=== PATIENT | female | born 1940 | race Caucasian/White ===

== ENCOUNTER 2024-11-29 19:40 | Inpatient (IN) | payer OTHER, SELFPAY ==
[2024-11-29] VITALS (53 sets, daily range): BP systolic 135–206; BP diastolic 58–108; PULSE 80
[2024-11-29 14:56] LABS: ALT (SGPT) 21 U/L (0-35); AST (SGOT) 19 U/L (14-36); Albumin 3.9 g/dl (3.5-5.0); Alkaline Phosphatase 95 U/L (38-126); Blood Urea Nitrogen 33 mg/dl (7-17); Calcium 9.6 mg/dl (8.4-10.2); Carbon Dioxide 25 mmol/L (22-30); Chloride 105 mmol/L (98-107); Glucose 126 mg/dl (70-99); Potassium 4.3 mmol/L (3.5-5.1); Sodium 142 mmol/L (135-145); Total Bilirubin 1.1 mg/dl (0.2-1.3); Total Protein 7.1 g/dl (6.3-8.2); eGFR 27.78
[2024-11-29 14:59] LABS: % Basophils 0.8 % (0-2); % Eosinophils 0.8 % (0-6); % Immature Granulocytes 0.3 % (0-0.5); % Lymphocytes 9.3 % (20.5-51.1); % Monocytes 9.3 % (1.7-9.3); % Neutrophils 79.5 % (42.2-75.2); Absolute Lymphocytes 0.4 10^3/uL (1.2-3.4); Absolute Monocytes 0.4 10^3/uL (0.1-0.6); Hematocrit 35.7 % (37.0-47.0); Hemoglobin 11.3 g/dL (12.0-16.0); Mean Corp Hgb Conc. 31.7 g/dL (33.0-37.0); Mean Corpuscular Hgb 25.2 pg (27.0-31.0); Mean Corpuscular Volume 79.5 fL (81.0-99.0); Nucleated Red Blood Cells % 0 %; Platelet Count 129 10^3/uL (130-400); Red Blood Cell Count 4.49 10^6/uL (4.20-5.40); Red Cell Dist. Width 21.2 % (11.5-14.5); White Blood Cell Count 3.8 10^3/uL (4.8-10.8)
[2024-11-29 15:08] LABS: NT-proBNP > 27000 pg/ml
--- NOTE | 2024-11-29 15:53 | ED.GENMED ---
History of Present Illness
<Kaitlin Duron PA-C - Last Filed: 11/30/24 01:12>
General
Chief Complaint: Swelling
Source: patient
Exam Limitations: dementia
Time Seen by Provider: 11/29/24 15:09
Nursing documentation reviewed up to this point in time: agreed with
History of Present Illness
History of Present Illness:
Patient is an 84-year-old female with history CAD, hypertension, hyperlipidemia, CHF presenting to the emergency department from [place] via EMS for evaluation of bilateral lower leg swelling. Patient unable to contribute much to history due to
dementia.
Patient has no current complaints right now including headache, chest pain, shortness of breath, abdominal pain, or pain in lower legs.
According to patient's paperwork does she does have a history of CHF. She takes torsemide 20 mg daily. Patient has a pacemaker.
Past History
<Kaitlin Duron PA-C - Last Filed: 11/30/24 01:12>
Past History
ED Past Medical History: HTN
Review of Systems
<Kaitlin Duron PA-C - Last Filed: 11/30/24 01:12>
Review of Systems
Allergies reviewed?: Yes
All Other Systems: ROS reviewed and negative except as documented in HPI and ROS
Phy Exam
<Kaitlin Duron PA-C - Last Filed: 11/30/24 01:12>
Physical Exam
Physical Exam:
Vitals: Hypoxic with O2 88 on RA. Hypertensive, otherwise stable vital signs. Afebrile
General: Patient is frail appearing.
Skin: Warm and dry, no rashes or lesions
Head: Normocephalic, atraumatic
Eyes: Sclera nonicteric. EOMs intact. No nystagmus.
Throat: Protecting airway
Neck: Normal ROM, no cervical spine tenderness, no meningismus. No JVD
Cardiac: Regular rate and rhythm, no murmurs.
Pulm: Hypoxic on room air to 88%. Placed on 3 L nasal cannula. Scattered fine crackles
Abdomen: Abdomen soft. No abdominal tenderness.
Extremities: 2+ pitting edema bilateral lower extremities. No erythema or warmth. Palpable DP pulses bilaterally
Neuro: AAOx [address], not time. No focal deficit
Psychiatric: Normal affect.
Scores
<Kaitlin Duron PA-C - Last Filed: 11/30/24 01:12>
Heart Failure Risk
Heart Failure Risk Score: Yes
History of Stroke or TIA: No
History of intubation for respiratory distress: No
Heart rate on ED arrival >/= 110: No
SaO2 <90% on arrival on room air: Yes
HR >/=110 during 3min walk test (or too ill to perform test): No
ECG has acute ischemic changes: No
Urea >/=12mmol/L (BUN 33.6mg/dL): Yes
Serum CO2>/=35mmol/L: No
Troponin I or T elevated to AL Level (0.4mg/dL): No
NT-proBNP >/=5,000ng/L (5,000pg/ml): Yes
HF Risk Score: 3
Admission Status: HIGH RISK 15.9% Consider SNF treatment or admission to hospital
Course
<Kaitlin Duron PA-C - Last Filed: 11/30/24 01:12>
Orders/Labs/Results
Orders:
Orders
11/29/24 14:04
Electrocardiogram (*1) Urgent
Reason for Study: Shortness of Breath
11/29/24 14:19
CMP [Comprehensive Metabolic Panel] Urgent
Complete Blood Count/With Diff Urgent
NT-proBNP Urgent
Troponin I Urgent
11/29/24 15:24
Interrogate Pacemaker- Treatment ONCE
CR Chest - 2 Views Urgent
Comment:
Reason For Exam: shortness of breath, lower extremity edema
11/29/24 16:40
Furosemide [Lasix] 40 mg IV NOW STA
11/29/24 17:29
Troponin I Urgent
11/29/24 18:22
CT Head W/o Iv Contrast Urgent
Comment:
Reason For Exam: confusion, high blood pressure, hx ICH
11/29/24 18:24
Sorbitol Solution [Sorbitol 70% Solution] 30 ml PO DAILYPRN PRN
methocarbamol 500 mg PO Q8HPRN PRN
11/29/24 18:27
HydrALAZINE [Apresoline] 5 mg IV NOW STA
HydrALAZINE [Apresoline] 5 mg IV Q4HPRN PRN
11/29/24 18:30
Nicardipine 40 mg/200 ml [Cardene] 40 mg in 200 ml IV PER PROTOCOL
Initial dose in mg/hr, then titrate:: 5
Titrate to keep:: BP < 180/105 mmHg
Titrate by mg/hr:: 2.5 mg/hr
Frequency of titrations (minutes):: 5-15 minutes
Maximum dose in mg/hr:: 15
Begin to taper infusion when:: Remained at goal for 2hrs
Taper by mg/hr:: 2.5 mg/hr
Frequency of taper (minutes) if patient maintains goal:: every 15-30 minutes
Taper to off?: Yes
If infusion off & no longer maintaining goal:: Contact Provider
11/29/24 18:41
Admit/Transfer Patient As Directed
Co-Sign Provider:
Level of Care: Inpatient admission
Assign to:: ICU
Physician / Group: Misael Cast
Diagnosis: Hypertensive Emergency/Urgency Heart Failure ALYSON
Reason for Hospitalization: Hypertensive Emergency/Urgency Heart Failure [facility]
Expected length of stay greater than two midnights?: Yes
ELOS- Estimated Length of Stay in days: 2
I certify the patient meets the requirements for IP care: Yes
PRN Pain Medication Management As Directed
May give lesser potent ordered pain med per pt: Yes
preference::
Protocol:: Medication orders for pain may be administered in a
manner that supports deferring to patient preference
when the pt is:
- Requesting an ordered lesser potent pain medication.
Least to most potent pain medications are defined
as: acetaminophen < NSAID < tramadol < opioids
(morphine, oxycodone, hydromorphone).
- Requesting a lesser dose of the same medication IF
ORDERED.
- Requesting a less intrusive route of administration
if both routes are prescribed by the provider (PO <
IV).
11/29/24 18:54
Supervisor Asphalt Paving Consult Urgent
Consulting Provider: Dev Walden
Was physician already notified: Yes
Reason for consult: Hypertensive Emergency/Urgency Heart Failure ALYSON
11/29/24 18:59
CARDIOLOGY CONSULT Routine
Consulting Provider: Chidi Latham
Was physician already notified: Yes
Reason for consult: Hypertensive Emergency/Urgency Heart Failure ALYSON
11/29/24 19:01
NEPHROLOGY CONSULT Routine
Consulting Provider: Seth Chen V.
Was physician already notified: Yes
Reason for consult: Hypertensive Emergency/Urgency Heart Failure ALYSON
11/29/24 19:15
Precautions As Directed
Type of Precautions: Other
Comment: fall precautions
11/29/24 19:21
Acetaminophen [Tylenol] 650 mg PO Q6HPRN PRN
11/29/24 19:26
Lidocaine [Lidocaine 4% Patch] 1 patch TOPICAL DAILYPRN PRN
Apply Lidocaine patch(s) to:: back pain
11/29/24 19:27
Remove Patch [Remove Lidocaine Patch] 1 patch REMOVE DAILY@2000 PRN
Medical Records Request [Obtain Records] As Directed
Dates of Information to be Released: [place] [facility]
Type of Information Requested: Entire Record
11/29/24 19:29
Bisacodyl [Dulcolax] 10 mg RECTAL DAILYPRN PRN
11/29/24 19:37
Code Status As Directed
Resuscitation Status: Do not resuscitate
Reached after discussion with pt or family/Healthcare POA: Yes
DNR Bracelet Application ONCE
11/29/24 20:00
Carvedilol [Coreg] 12.5 mg PO BID
Flush (0.9% Sodium Chloride) [Flush (Nss)] See Dose Instructions IV PER PROTOCOL
HydrALAZINE [Apresoline] 25 mg PO BID
11/29/24 22:00
Atorvastatin [Lipitor] 40 mg PO HS
11/30/24 00:21
Bisacodyl [Dulcolax] 10 mg RECTAL [id number] PRN
Docusate W/Senna [Senokot-S] 1 tablet PO BIDPRN PRN
Heparin 5,000 units SC Q8
Nitroglycerin Sublingual [Nitrostat (Sublingual)] 0.4 mg SL [id number] PRN
Polyethylene Glycol Powder [Miralax] 17 grams PO DAILYPRN PRN
11/30/24 00:21
Admit Patient As Directed
Co-Sign Provider:
Level of Care: Inpatient admission
Assign to:: ICU
Physician / Group: Misael Cast
Diagnosis: Hypertensive Emergency/Urgency Heart Failure [facility]ON
Reason for Hospitalization: Hypertensive Emergency/Urgency Heart Failure [facility]
Expected length of stay greater than two midnights?: Yes
ELOS- Estimated Length of Stay in days: 2
I certify the patient meets the requirements for IP care: Yes
Echo 2D MMode Color/Doppler Routine
Reason for Study: heart failure
Troponin I Routine
Activity As Directed
Activity Level: With Assistance
Bladder Scan As Directed
Follow Bladder Retention/Intermittent Cath Algorithm?: Yes
Frequency: Per Retention Algorithm
Comment: as per intermittent urinary catheter algorithm
Bladder Scan As Directed
Follow Bladder Retention/Intermittent Cath Algorithm?: Yes
PRN if no void in __ hours: 6
Frequency: Per Retention Algorithm
If Bladder Scan Result >: 400
then:: Straight cath
ECG as needed As Directed
ECG as needed for:: Chest Pain
Other reason
Other reason for ECG as needed:: new suspicion of ACS
Comment: At onset of Chest Pain and then Q__H x 2. draw Troponin with each ECG
Additional Instructions:: at onset of chest pain or new suspicion of ACS:
-- ECG and Troponin urgent now
-- then ECG and Troponin with each ECG every 3 hours x total of 3,
including ED or other inpatient ECG/troponins.
Intake/ Output As Directed
Frequency: Per unit guidelines
Neurological Checks As Directed
Frequency: Per unit guidelines
Notify MD As Directed
Notify physician if: if patient has chest pain or new suspicion of ACS
Straight Cath As Directed
Frequency: Per Retention Algorithm
Additional Instructions: as per intermittent urinary catheter algorithm
Straight Cath As Directed
Frequency: Per Retention Algorithm
Additional Instructions: straight cath as needed per acute urinary retention algorithm for 24 hrs
Additional Instructions: for bladder scan greater than 400 mL
Vital Signs As Directed
Frequency: Per unit guidelines
Weight As Directed
Frequency: Daily
Pulse Ox/spot Check [RESP] Urgent
Quantity: 1
Special Instructions: Pulse Oximetry on admission
Ot Eval And Treat Routine
Pt Eval And Treat Routine
Activity Level: With Assistance
Speech Therapy Eval & Treat Routine
DX Deep Vein Thrombosis Video Routine
11/30/24 Breakfast
Sodium, 2 Gram
At Your Request: Non-Participating
Does patient need a safe tray?: No
Fluid Restriction: 1500 mL/day (50 oz)
Low Sodium: Cholesterol Lowering
Basic Metabolic Panel IN AM
Complete Blood Count/With Diff IN AM
Magnesium IN AM
Phosphorus IN AM
Levothyroxine [Synthroid] 50 mcg PO DAILY@0600
Ot Eval And Treat IN AM
Pt Eval And Treat IN AM
Activity Level: With Assistance
Speech Therapy Eval & Treat IN AM
11/30/24 08:00
Furosemide [Lasix] 40 mg IV BID AT 0800,1600
12/01/24 06:00
Basic Metabolic Panel IN AM
Complete Blood Count/With Diff IN AM
Magnesium IN AM
Phosphorus IN AM
12/02/24 06:00
Basic Metabolic Panel IN AM
Complete Blood Count/With Diff IN AM
Magnesium IN AM
Phosphorus IN AM
12/03/24 06:00
Basic Metabolic Panel IN AM
Complete Blood Count/With Diff IN AM
Magnesium IN AM
Phosphorus IN AM
12/04/24 06:00
Basic Metabolic Panel IN AM
Complete Blood Count/With Diff IN AM
Magnesium IN AM
Phosphorus IN AM
12/05/24 06:00
Basic Metabolic Panel IN AM
Complete Blood Count/With Diff IN AM
Magnesium IN AM
Phosphorus IN AM
12/06/24 06:00
Basic Metabolic Panel IN AM
Complete Blood Count/With Diff IN AM
Magnesium IN AM
Phosphorus IN AM
Abnormal Lab Results
11/29/24 11/29/24
14:19 17:29
WBC 3.8 L 10^3/uL
(4.8-10.8)
Hgb 11.3 L g/dL
(12.0-16.0)
Hct 35.7 L %
(37.0-47.0)
MCV 79.5 L fL
(81.0-99.0)
MCH 25.2 L pg
(27.0-31.0)
MCHC 31.7 L g/dL
(33.0-37.0)
RDW 21.2 H %
(11.5-14.5)
Plt Count 129 L 10^3/uL
(130-400)
Absolute Lymphs (auto) 0.4 L 10^3/uL
(1.2-3.4)
Neutrophils % 79.5 H %
(42.2-75.2)
Lymphocytes % 9.3 L %
(20.5-51.1)
BUN 33 H mg/dl
(7-17)
Creatinine 1.8 H mg/dL
(0.6-1.0)
Glucose 126 H mg/dl
(70-99)
Troponin I 0.050 H* ng/ml 0.044 H* ng/ml
11/29/24 14:19
11/29/24 14:19
Vital Signs
Initial and Last Documented VS:
Initial Vital Signs
Temp Pulse Resp Pulse Ox
97.6 F 85 18 95
11/29/24 13:55 11/29/24 13:55 11/29/24 13:55 11/29/24 13:55
Last Documented Vital Signs
Temp Pulse Resp BP Pulse Ox
97.9 F 80 26 151/62 93
11/30/24 00:03 11/30/24 00:45 11/30/24 00:45 11/30/24 00:30 11/30/24 00:51
<Ramírez Esparza MD - Last Filed: 11/29/24 20:26>
Orders/Labs/Results
Orders:
Orders
11/29/24 14:04
Electrocardiogram (*1) Urgent
Reason for Study: Shortness of Breath
11/29/24 14:19
CMP [Comprehensive Metabolic Panel] Urgent
Complete Blood Count/With Diff Urgent
NT-proBNP Urgent
Troponin I Urgent
11/29/24 15:24
Interrogate Pacemaker- Treatment ONCE
CR Chest - 2 Views Urgent
Comment:
Reason For Exam: shortness of breath, lower extremity edema
11/29/24 16:40
Furosemide [Lasix] 40 mg IV NOW STA
11/29/24 17:29
Troponin I Urgent
11/29/24 18:22
CT Head W/o Iv Contrast Urgent
Comment:
Reason For Exam: confusion, high blood pressure, hx ICH
11/29/24 18:24
Sorbitol Solution [Sorbitol 70% Solution] 30 ml PO DAILYPRN PRN
methocarbamol 500 mg PO Q8HPRN PRN
11/29/24 18:27
HydrALAZINE [Apresoline] 5 mg IV NOW STA
HydrALAZINE [Apresoline] 5 mg IV Q4HPRN PRN
11/29/24 18:30
Nicardipine 40 mg/200 ml [Cardene] 40 mg in 200 ml IV PER PROTOCOL
Initial dose in mg/hr, then titrate:: 5
Titrate to keep:: BP < 180/105 mmHg
Titrate by mg/hr:: 2.5 mg/hr
Frequency of titrations (minutes):: 5-15 minutes
Maximum dose in mg/hr:: 15
Begin to taper infusion when:: Remained at goal for 2hrs
Taper by mg/hr:: 2.5 mg/hr
Frequency of taper (minutes) if patient maintains goal:: every 15-30 minutes
Taper to off?: Yes
If infusion off & no longer maintaining goal:: Contact Provider
11/29/24 18:41
Admit/Transfer Patient As Directed
Co-Sign Provider:
Level of Care: Inpatient admission
Assign to:: ICU
Physician / Group: Misael Cast
Diagnosis: Hypertensive Emergency/Urgency Heart Failure AL[facility]ON
Reason for Hospitalization: Hypertensive Emergency/Urgency Heart Failure [facility]
Expected length of stay greater than two midnights?: Yes
ELOS- Estimated Length of Stay in days: 2
I certify the patient meets the requirements for IP care: Yes
PRN Pain Medication Management As Directed
May give lesser potent ordered pain med per pt: Yes
preference::
Protocol:: Medication orders for pain may be administered in a
manner that supports deferring to patient preference
when the pt is:
- Requesting an ordered lesser potent pain medication.
Least to most potent pain medications are defined
as: acetaminophen < NSAID < tramadol < opioids
(morphine, oxycodone, hydromorphone).
- Requesting a lesser dose of the same medication IF
ORDERED.
- Requesting a less intrusive route of administration
if both routes are prescribed by the provider (PO <
IV).
11/29/24 18:54
Supervisor Asphalt Paving Consult Urgent
Consulting Provider: Dev Walden
Was physician already notified: Yes
Reason for consult: Hypertensive Emergency/Urgency Heart Failure ALYSON
11/29/24 18:59
CARDIOLOGY CONSULT Routine
Consulting Provider: Chidi Latham
Was physician already notified: Yes
Reason for consult: Hypertensive Emergency/Urgency Heart Failure ALYSON
11/29/24 19:01
NEPHROLOGY CONSULT Routine
Consulting Provider: Seth Chen V.
Was physician already notified: Yes
Reason for consult: Hypertensive Emergency/Urgency Heart Failure ALYSON
11/29/24 19:15
Precautions As Directed
Type of Precautions: Other
Comment: fall precautions
11/29/24 19:21
Acetaminophen [Tylenol] 650 mg PO Q6HPRN PRN
11/29/24 19:26
Lidocaine [Lidocaine 4% Patch] 1 patch TOPICAL DAILYPRN PRN
Apply Lidocaine patch(s) to:: back pain
11/29/24 19:27
Remove Patch [Remove Lidocaine Patch] 1 patch REMOVE DAILY@2000 PRN
Medical Records Request [Obtain Records] As Directed
Dates of Information to be Released: [place] [facility]
Type of Information Requested: Entire Record
11/29/24 19:29
Bisacodyl [Dulcolax] 10 mg RECTAL DAILYPRN PRN
11/29/24 19:37
Code Status As Directed
Resuscitation Status: Do not resuscitate
Reached after discussion with pt or family/Healthcare POA: Yes
DNR Bracelet Application ONCE
11/29/24 20:00
Carvedilol [Coreg] 12.5 mg PO BID
Flush (0.9% Sodium Chloride) [Flush (Nss)] See Dose Instructions IV PER PROTOCOL
HydrALAZINE [Apresoline] 25 mg PO BID
11/29/24 22:00
Atorvastatin [Lipitor] 40 mg PO HS
11/30/24 00:21
Bisacodyl [Dulcolax] 10 mg RECTAL [id number] PRN
Docusate W/Senna [Senokot-S] 1 tablet PO BIDPRN PRN
Heparin 5,000 units SC Q8
Nitroglycerin Sublingual [Nitrostat (Sublingual)] 0.4 mg SL [id number] PRN
Polyethylene Glycol Powder [Miralax] 17 grams PO DAILYPRN PRN
11/30/24 00:21
Admit Patient As Directed
Co-Sign Provider:
Level of Care: Inpatient admission
Assign to:: ICU
Physician / Group: Misael Cast
Diagnosis: Hypertensive Emergency/Urgency Heart Failure ALYSON
Reason for Hospitalization: Hypertensive Emergency/Urgency Heart Failure [facility]
Expected length of stay greater than two midnights?: Yes
ELOS- Estimated Length of Stay in days: 2
I certify the patient meets the requirements for IP care: Yes
Echo 2D MMode Color/Doppler Routine
Reason for Study: heart failure
Troponin I Routine
Activity As Directed
Activity Level: With Assistance
Bladder Scan As Directed
Follow Bladder Retention/Intermittent Cath Algorithm?: Yes
Frequency: Per Retention Algorithm
Comment: as per intermittent urinary catheter algorithm
Bladder Scan As Directed
Follow Bladder Retention/Intermittent Cath Algorithm?: Yes
PRN if no void in __ hours: 6
Frequency: Per Retention Algorithm
If Bladder Scan Result >: 400
then:: Straight cath
ECG as needed As Directed
ECG as needed for:: Chest Pain
Other reason
Other reason for ECG as needed:: new suspicion of ACS
Comment: At onset of Chest Pain and then Q__H x 2. draw Troponin with each ECG
Additional Instructions:: at onset of chest pain or new suspicion of ACS:
-- ECG and Troponin urgent now
-- then ECG and Troponin with each ECG every 3 hours x total of 3,
including ED or other inpatient ECG/troponins.
Intake/ Output As Directed
Frequency: Per unit guidelines
Neurological Checks As Directed
Frequency: Per unit guidelines
Notify MD As Directed
Notify physician if: if patient has chest pain or new suspicion of ACS
Straight Cath As Directed
Frequency: Per Retention Algorithm
Additional Instructions: as per intermittent urinary catheter algorithm
Straight Cath As Directed
Frequency: Per Retention Algorithm
Additional Instructions: straight cath as needed per acute urinary retention algorithm for 24 hrs
Additional Instructions: for bladder scan greater than 400 mL
Vital Signs As Directed
Frequency: Per unit guidelines
Weight As Directed
Frequency: Daily
Pulse Ox/spot Check [RESP] Urgent
Quantity: 1
Special Instructions: Pulse Oximetry on admission
Ot Eval And Treat Routine
Pt Eval And Treat Routine
Activity Level: With Assistance
Speech Therapy Eval & Treat Routine
DX Deep Vein Thrombosis Video Routine
11/30/24 Breakfast
Sodium, 2 Gram
At Your Request: Non-Participating
Does patient need a safe tray?: No
Fluid Restriction: 1500 mL/day (50 oz)
Low Sodium: Cholesterol Lowering
Basic Metabolic Panel IN AM
Complete Blood Count/With Diff IN AM
Magnesium IN AM
Phosphorus IN AM
Levothyroxine [Synthroid] 50 mcg PO DAILY@0600
Ot Eval And Treat IN AM
Pt Eval And Treat IN AM
Activity Level: With Assistance
Speech Therapy Eval & Treat IN AM
11/30/24 08:00
Furosemide [Lasix] 40 mg IV BID AT 0800,1600
12/01/24 06:00
Basic Metabolic Panel IN AM
Complete Blood Count/With Diff IN AM
Magnesium IN AM
Phosphorus IN AM
12/02/24 06:00
Basic Metabolic Panel IN AM
Complete Blood Count/With Diff IN AM
Magnesium IN AM
Phosphorus IN AM
12/03/24 06:00
Basic Metabolic Panel IN AM
Complete Blood Count/With Diff IN AM
Magnesium IN AM
Phosphorus IN AM
12/04/24 06:00
Basic Metabolic Panel IN AM
Complete Blood Count/With Diff IN AM
Magnesium IN AM
Phosphorus IN AM
12/05/24 06:00
Basic Metabolic Panel IN AM
Complete Blood Count/With Diff IN AM
Magnesium IN AM
Phosphorus IN AM
12/06/24 06:00
Basic Metabolic Panel IN AM
Complete Blood Count/With Diff IN AM
Magnesium IN AM
Phosphorus IN AM
Abnormal Lab Results
11/29/24 11/29/24
14:19 17:29
WBC 3.8 L 10^3/uL
(4.8-10.8)
Hgb 11.3 L g/dL
(12.0-16.0)
Hct 35.7 L %
(37.0-47.0)
MCV 79.5 L fL
(81.0-99.0)
MCH 25.2 L pg
(27.0-31.0)
MCHC 31.7 L g/dL
(33.0-37.0)
RDW 21.2 H %
(11.5-14.5)
Plt Count 129 L 10^3/uL
(130-400)
Absolute Lymphs (auto) 0.4 L 10^3/uL
(1.2-3.4)
Neutrophils % 79.5 H %
(42.2-75.2)
Lymphocytes % 9.3 L %
(20.5-51.1)
BUN 33 H mg/dl
(7-17)
Creatinine 1.8 H mg/dL
(0.6-1.0)
Glucose 126 H mg/dl
(70-99)
Troponin I 0.050 H* ng/ml 0.044 H* ng/ml
11/29/24 14:19
11/29/24 14:19
Vital Signs
Initial and Last Documented VS:
Initial Vital Signs
Temp Pulse Resp Pulse Ox
97.6 F 85 18 95
11/29/24 13:55 11/29/24 13:55 11/29/24 13:55 11/29/24 13:55
Last Documented Vital Signs
Temp Pulse Resp BP Pulse Ox
97.9 F 80 26 151/62 93
11/30/24 00:03 11/30/24 00:45 11/30/24 00:45 11/30/24 00:30 11/30/24 00:51
<Kaitlin Duron PA-C - Last Filed: 11/30/24 01:12>
MDM/Problems Addressed
Differential Diagnosis Includes:
Not limited to: Acute CHF exacerbation, lymphedema, bronchitis, pneumonia, viral illness, ACS, doubt PE, etc.
MDM/Problems Addressed:
84-year-old female with history as documented presenting with bilateral lower extremity edema. Patient found to be hypoxic on arrival to emergency, 88% on room air. Patient placed on 3 L nasal cannula. Patient with history dementia, unable to
extremity history although denies any current complaints. Patient is hypertensive and hypoxic on arrival, otherwise stable vital signs. She is afebrile. On exam�patient in no apparent distress. Heart regular rate and rhythm. Lungs with
scattered rales. She does not appear to be in any respiratory distress. Abdomen soft nontender. Patient does have 2+ pitting edema bilateral lower extremities. Palpable pulses. No erythema or warmth to suggest infectious process. Do not
suspect DVT. Basic labs initiated in triage significant for mild leukopenia. Mild renal insufficiency slightly worse [place] >[address]. Troponin elevated to 0.050 which I suspect to be secondary to demand ischemia. Do not suspect
ACS although will trend. High suspicion for acute CHF exacerbation. Will obtain chest x-ray. Patient will likely require admission for IV diuresis.
Update: Chest x-ray shows pulmonary edema with bilateral pleural effusions. Patient given 40 IV Lasix in emergency department. Patient accepted to hospital service in stable condition.
Chronic conditions affecting care:
Atrial fibrillation, CAD, hypertension, CHF
Acute Exacerbation and/or Progression of Chronic Illness:
Acute CHF exacerbation
<Kaitlin Duron PA-C - Last Filed: 11/30/24 01:12>
*Radiology
Radiology exam reviewed: preliminary read by ED provider (Pulmonary edema) and radiology read reviewed
*Pulse Oximetry
Patient hypoxic: yes (Hypoxic to 88 on room air-placed on 3 L nasal)
*EKG
Interpreted by ED Provider?: Yes
EKG Intrepretation Date: 11/29/24
Interpretation: abnormal
Comparison EKG: no comparison EKG present
Heart Rate: 81
Rate: normal
Rhythm: ventricular paced
*Debt Collection Specialist Interpretation
Rate: normal
Interpretation: abnormal
Heart Rate: 80
Rhythm: ventricular paced
*Critical Care Note
Total Time (30-74mins, 75-104mins- exclusive of procedures): Not Applicable
<Kaitlin Duron PA-C - Last Filed: 11/30/24 01:12>
Patient Management
Discussion with other providers: Hospitalist
Escalation/DeEscalation of care consider admission/obs:
Admit for IV diuresis, supplemental oxygen
ED Attending Note
<Kaitlin Duron PA-C - Last Filed: 11/30/24 01:12>
-
Portions of this chart may have been created with voice recognition software.� Occasional wrong word or��sound alike� substitutions may have occurred due to the inherent limitations of voice recognition software.
<Ramírez Esparza MD - Last Filed: 11/29/24 20:26>
ED Attending Note
Patient seen and examined by attending physician: Yes
I performed the substantive portion of visit, reviewed & personally made and approve the management plan that is documented in note by myself or KYA.: Yes
ED Attending Note:
I have seen and evaluated the patient with a [id number] encounter. I have spoken to the [PA] and involved in the medical history, the physical exam, medical decision making.
Evaluation and management service: agree unless noted differently below.
Results interpretation: agree unless noted differently below.
84-year-old woman with history of CAD, CHF, CKD presenting to the emergency department with bilateral lower extremity swelling. Patient with dementia and unable to provide any additional history. Vitals are notable for hypertension as well as
hypoxia. She does have Rales bilaterally though she appears extremely comfortable.. Bilateral lower extremity swelling. Likely CHF exacerbation. Will initiate Lasix. Patient will need admission for diuresis.
Discharge Plan
Departure
Patient Disposition: Admit
Date of Disposition: 11/29/24
Time of Disposition: 16:38
Presentation/result/management discussed w/ accepting MD/DO: Hospitalist
Patient with high blood pressure during this ER visit?: Yes
Condition: Good
Discharge Problem:
Acute exacerbation of CHF (congestive heart failure), Hypoxia, Elevated troponin
Interventions
Interventions:
*Risk Screen - Suicide Last Done: 11/29/24 13:55
*General Assessment Last Done: 11/29/24 13:55
*Neglect/Abuse Screening Last Done: 11/29/24 13:55
ED- Fall Risk Assessment Last Done: 11/29/24 13:55
*ED COVID-19 Vaccine History Last Done: 11/29/24 13:55
*Nursing Disposition Last Done: 11/29/24 23:40
ED- Cardiac Assessment Last Done: 11/29/24 14:17
ED- Pulmonary Assessment Last Done: 11/29/24 14:17
ED-Skin Assessment Last Done: 11/29/24 14:25
Discharge Date and Time
Discharge Date/Time: 11/29/24 23:40
[2024-11-29] MEDS: LASIX 40 MG IV (17:14)
--- NOTE | 2024-11-29 17:43 | HPS.HSE ---
Addendum entered and electronically signed by Misael Cast MD 11/29/24 19:30:
Of note, patient was here 2021 for Hemorrhagic stroke transferred to [facility].
All of history obtained from records and son Dorian YUN's report at bedside.
Original Note:
Family Physician
-
Family Physician: Romy Rodriguez
Chief Complaint
-
Shortness of breath
History of Present Illness
84F CAD ischemic Cardiomyopathy CHF ppm Hypothyroidism PAD CKD3 recent traumatic brain injury Cognitive Impairment/Dementia following Intracranial Hemorrhage from fall treated at [facility] non-operatively a month ago presents from [facility]
living d/t concerns progressive SOB hypoxia requiring 4L lower ext swelling roughly 1 day duration. AOx3 though confused, does not know why she is in hospital, appears baseline as per son POA at bedside. High pressures noted >190/>100. Patient
denied pain headache palpitations. Pupil equal size not enlarged. Cr 1.8 possibly ALYSON vs baseline CKD IV. CR chest noted moderate cardiomegaly w/ pulm edema and b/l pleural effusions
Medical History
Past Medical History
Past Medical History: Reports Other (as above)
Past Surgical History: Reports Other (as above)
Social History
Tobacco: Non-smoker
Alcohol: None
Drug: None
Personal:
Living: Assisted Living ([place])
Employment: Not Employed
Family History
Family History: Not pertinent (reviewed)
Allergies / Home Medications
Allergies reflects when Allergies were last updated in [facility].
Home Medications with original date entered in [facility]
Allergy/Medication List:
Allergies
Allergy/AdvReac Type Severity Reaction Status Date / Time
amoxicillin Allergy Vomiting Verified 11/19/22 22:42
Beta-Blockers Allergy list Verified 11/19/22 22:42
(Beta-Adrenergic Bloc states
worsens
Raynauds
codeine Allergy Nausea / Verified 11/19/22 22:42
Vomiting
Home Medications
levothyroxine 25 mcg tablet (Synthroid) 50 mcg PO DAILY@0600 11/19/22
acetaminophen 325 mg tablet (Tylenol) 650 mg PO Q6HPRN PRN mild pain 11/29/24
atorvastatin 40 mg tablet (Lipitor) 40 mg PO HS 11/29/24
bisacodyl 10 mg rectal suppository (Dulcolax (bisacodyl)) 10 mg [place] DAILYPRN PRN constipation 11/29/24
carvedilol 12.5 mg tablet (Coreg) 12.5 mg PO BID 11/29/24
hydralazine 25 mg tablet 25 mg PO BID 11/29/24
lidocaine 4 % topical patch 1 patch topical DAILYPRN PRN back pain 11/29/24
methocarbamol 500 mg tablet 500 mg PO Q8HPRN PRN muscle spams 11/29/24
sorbitol 70 % solution 30 ml PO DAILYPRN PRN constipation 11/29/24
torsemide 20 mg tablet 20 mg PO DAILY 11/29/24
Review of Systems
-
A 12 point ROS was completed and negative except as noted: Yes
Constitutional: Reports Other (as below)
Physical Exam
Vital Signs
Vital Signs
Temp Pulse Resp BP Pulse Ox
97.6 F 80 18 183/101 98
11/29/24 13:55 11/29/24 17:30 11/29/24 13:55 11/29/24 17:14 11/29/24 17:30
Physical Exam
General: Other (as below)
Laboratory Results
-
11/29/24 14:19
11/29/24 14:19
Laboratory Results
Total Bilirubin 1.1 mg/dl (0.2-1.3) 11/29/24 14:19
AST 19 U/L (14-36) 11/29/24 14:19
ALT 21 U/L (0-35) 11/29/24 14:19
Alkaline Phosphatase 95 U/L (38-126) 11/29/24 14:19
Troponin I 0.050 ng/ml H* 11/29/24 14:19
Impression/Plan
-
ROS
General: Denies fever chills night sweats unexpected weight loss
Neuro: Denies seizure shaking loss of consciousness dizziness vertigo
Psych: denies depression hallucinations confusion manic episodes
Endocrine: Denies polyuria polydipsia polyphagia heat/cold intolerance
HEENT: Denies blindness visual disturbances epistaxis
Pulmonary: denies coughing hemoptysis sneezing sob dyspnea on exertion
Cardiovascular: denies chest pain palpitations leg swelling
Hematology: denies signs symptoms of anemia easy bruising/bleeding
Gastrointestinal: denies nausea vomiting diarrhea constipation hematemesis hematochezia melena
Genito-Urinary: denies retention incontinence dysuria
Musculoskeletal: denies joint pain weakness
Dermatology: denies rash laceration bruising
Physical Exam
General: No pallor, cyanosis, or jaundice.
HEENT: Throat clear. Normocephalic atraumatic. Pupils equal not enlarged
NECK: Supple. No JVD Carotid Bruits
RESPIRATORY: Lungs clear to auscultation. No crackles wheezes stridor
CVS: S1, S2 normal. RRR. No murmur, rub or gallop. palpable pacemaker
ABDOMEN: Soft, non-tender. No distension. BS+/normal.
EXTREMITIES: No peripheral cyanosis. Lower ext edema +2 b/l. strength 4/5 lower ext's able to lift off bed
[employer]: AOx3 though some confusion memory issues noted
IMPRESSION:
84F CAD ischemic Cardiomyopathy CHF ppm Hypothyroidism PAD CKD3 recent traumatic brain injury Cognitive Impairment/Dementia following Intracranial Hemorrhage from fall treated at [facility] non-operatively a month ago presents from [facility]
living d/t concerns progressive SOB hypoxia requiring 4L lower ext swelling roughly 1 day duration. AOx3 though confused, does not know why she is in hospital, appears baseline as per son POA at bedside. High pressures noted >190/>100. Patient
denied pain headache palpitations. Pupil equal size not enlarged. Cr 1.8 possibly ALYSON vs baseline CKD IV. CR chest noted moderate cardiomegaly w/ pulm edema and b/l pleural effusions
PLAN:
#Hypertensive Urgency/Emergency
Admit to ICU, lining parts sewer cardio and nephro eval requested
nicardipine gtt goal <180/<105
resume home antihypertensives Coreg Hydralazine with holding parameters
#Hx Intracranial Hemorrhage traumatic brain injury fall treated non-operatively at [facility] 1 month ago
#Cognitive Impairment/Dementia (per son Dementia was diagnosed in same time period as intracranial hemorrhage)
#Wheelchair bound at baseline since hemorrhage (prior was on rolling walker)
Check CT head
ST/PT/OT eval
#Heart Failure Exacerbation Unclear Type
cont IV Lasix 40 mg BID (patient takes 20 mg Torsemide at home)
daily weights I/O
cont home Coreg
Cardio eval requested
#Possible ALYSON vs Baseline CKD IV
#noted hx CKD III
initial Cr 1.8 monitor on diuresis
Nephro eval requested
dvt ppx Heparin
GI ppx Famotidine
DNR as per patient and son POA Dorian
Total Critical Care Time__50___ minutes. I was immediately available to the patient and staff. I personally examined, reviewed labs, diagnostic images/reports, interpretations, treatment plans, discussed patient care with other providers and
patient and her son POA Dorian, entered orders as appropriate and documented the medical record.
[2024-11-29 18:10] LABS: Troponin I 0.044 ng/ml
[2024-11-29] MEDS: APRESOLINE 5 MG IV (19:03)
[2024-11-29] MEDS: CARDENE 200 IV (19:47)
[2024-11-29] MEDS: COREG PO (23:19)
[2024-11-29] MEDS: APRESOLINE 25 MG PO (23:21)
[2024-11-29] MEDS: LIPITOR 40 MG PO (23:21)
[2024-11-30] VITALS (21 sets, daily range): BP systolic 142–180; BP diastolic 59–105; BMI 25.7
--- NOTE | 2024-11-30 00:55 | PTCARENOTE ---
Received pt from ER,awake quiet affect,pt tolerated transfer well.Pts physical assessment preformed,SBP 160s upon arrial Cardene off.Pt is Vpaced.O2 sat 93% on 3lnc pt is mouth breather,pt presents with moist cough.Pt denies pain,confused but
cooperative.Afebrile.Close observation ongoing.
[2024-11-30 01:48] LABS: INR 1.16; PT 15.3 Sec (11.4-14.6)
[2024-11-30 02:35] LABS: Troponin I 0.046 ng/ml
[2024-11-30] MEDS: HEPARIN 5000 UNITS SC ×4 (04:06→22:59)
[2024-11-30 04:26] LABS: Blood Urea Nitrogen 32 mg/dl (7-17); Calcium 9.6 mg/dl (8.4-10.2); Carbon Dioxide 28 mmol/L (22-30); Chloride 106 mmol/L (98-107); Estimated Creatinine Clearance 20 ml/min; Glucose 114 mg/dl (70-99); Magnesium 2.3 mg/dl (1.6-2.3); Phosphorus 3.1 mg/dl (2.5-4.5); Sodium 143 mmol/L (135-145)
[2024-11-30 04:32] LABS: Potassium 3.5 mmol/L (3.5-5.1)
[2024-11-30 04:39] LABS: % Basophils 0.7 % (0-2); % Eosinophils 0.5 % (0-6); % Immature Granulocytes 0.7 % (0-0.5); % Lymphocytes 7.8 % (20.5-51.1); % Monocytes 9.2 % (1.7-9.3); % Neutrophils 81.1 % (42.2-75.2); Absolute Lymphocytes 0.3 10^3/uL (1.2-3.4); Absolute Monocytes 0.4 10^3/uL (0.1-0.6); Absolute Neutrophils 3.3 10^3/uL (1.4-6.5); Hematocrit 35.8 % (37.0-47.0); Hemoglobin 11.2 g/dL (12.0-16.0); Mean Corp Hgb Conc. 31.3 g/dL (33.0-37.0); Mean Corpuscular Hgb 24.8 pg (27.0-31.0); Mean Corpuscular Volume 79.2 fL (81.0-99.0); Mean Platelet Volume 9.7 fL (7.4-10.4); Nucleated Red Blood Cells % 0 %; Platelet Count 119 10^3/uL (130-400); Red Blood Cell Count 4.52 10^6/uL (4.20-5.40); Red Cell Dist. Width 21.2 % (11.5-14.5); White Blood Cell Count 4.1 10^3/uL (4.8-10.8)
[2024-11-30] MEDS: SYNTHROID 50 MCG PO (06:22)
--- NOTE | 2024-11-30 06:57 | W.PN.HOSP.TC ---
Today's Communication/Plan
-
Continue diuresis
Since patient did not need Cardene okay to transfer to telemetry
Increase hydralazine
Watch creatinine
Watch platelets
Echo
Assessment / Plan
Assessment / Plan
84-year-old female with coronary disease presented from [facility] with shortness of breath and lower extremity edema. Patient was also confused. Her pressure was elevated in the ER. When I ask her any questions her answer is 'I do
not know'.
Awake and alert but confused
Cardiovascular system S1-S2 appreciated, systolic murmur at apex
Chest bilateral rales
Abdomen soft and nontender
Bilateral lower extremity edema noted
Skin discoloration just above the ankle posteriorly on the left, skin tear on the right chest over the ankle
Chest x-ray reviewed by me-by bilateral pulmonary edema and effusion
# Hypertensive emergency with pulmonary edema
Did not require Cardene drip per discussion with nursing
Increase p.o. hydralazine to 25 every 8 hours. Continue as needed IV hydralazine, continue Coreg
Pressure likely volume mediated
# Acute heart failure-unclear type
proBNP more than 27,000
Continue Lasix 40 mg IV twice daily-takes torsemide 20 mg daily at home
Daily weights intake output charting
Continue Coreg
Need to consider starting SGLT2 inhibitors this admission
Cardiology evaluation
Update echo
# History of coronary artery disease-history of stents-details unclear
# Elevated troponin-likely nonischemic myocardial injury
# CKD stage III-unclear if has ALYSON
# Hyperlipidemia-continue statin
# Hyperglycemia-check hemoglobin A1c
# Hypothyroidism-continue Synthroid
# Mild thrombocytopenia-follow
# History of intracranial hemorrhage in 2021 and was transferred to [facility]
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
# Cognitive impairment/dementia
# Ambulatory cmjoatqxpox-fmioqxlezy-kyhet now
# DVT prophylaxis-subcutaneous heparin
# DNR
Discussed with nursing
Okay to transfer to telemetry
time over 50 min
Anticipated Discharge: > 48 hours
Subjective/Interval History
-
Date of Service: November 30, 2024
Objective Data
-
Labs:
Laboratory Results
11/30/24 11/30/24
01:25 04:02
WBC 4.1 L
Hgb 11.2 L
Hct 35.8 L
Plt Count 119 L
PT 15.3 H
INR 1.16
APTT 28.0
Sodium 143
Potassium 3.5
Chloride 106
Carbon Dioxide 28
BUN 32 H
Creatinine 1.6 H
Glucose 114 H
Calcium 9.6
Vital Signs:
Vital Signs
Temp Pulse Resp BP Pulse Ox
97.6 F 80 48 172/89 96
11/30/24 03:15 11/30/24 06:15 11/30/24 06:15 11/30/24 06:00 11/30/24 06:15
I&O
11/28/24 11/29/24 11/30/24
06:59 06:59 06:59
Intake Total 120 / 120
Output Total 1400 / 1400
Balance -1280 / -1280
[2024-11-30] MEDS: APRESOLINE 25 MG PO ×3 (08:17→23:03)
[2024-11-30] MEDS: COREG 12.5 MG PO ×2 (08:17→21:00)
[2024-11-30] MEDS: DESENEX/MITRAZOL/ZEASORB 1 APPLIC TOPICAL ×2 (08:17→21:02)
[2024-11-30] MEDS: LASIX 40 MG IV ×2 (08:18→17:40)
[2024-11-30 08:36] LABS: Glycohemoglobin (HgbA1c) 5.8 % (4.0-5.6)
--- NOTE | 2024-11-30 09:15 | PTOTSP ---
Speech Language Pathology
Pt seen for clinical bedside swallow evaluation. Sleeping soundly upon arrival. Able to rouse with significant verbal and tactile stimulation. Flat affect with impulsivity and confusion noted. Seen with breakfast tray of regular solids/thin
liquids. Adequate mastication, bolus formation, and A-P transit noted with no oral residue. Cough x1 post consecutive sips of thin liquids. No other coughing noted.
CXR not concerning for aspiration, and cough only noted x1 with breakfast. Will continue to follow and determine need for instrumental swallowing assessment.
Recommend:
(1) Regular solids/thin liquids
(2) Aspiration precautions: set up assist, sit upright, slow rate
(3) Meds as tolerated
(4) Will consider VSE as needed
(5) HAM SMOKER to continue to follow
--- NOTE | 2024-11-30 09:45 | W.CON.NEPH ---
Consultation
-
Date/Time Consultation Requested: November 29, 2024 at 1900 hrs.
Date/Time Consultation Performed: November 30, 2024 at 9:30 AM
Requesting Provider: Dr Cast
Performing Provider: Dr Abhishek Bowie
Reason for Consultation: Acute on chronic kidney disease
Medical History
-
Chief Complaint: Shortness of breath
History of Present Illness:
84F CAD ischemic Cardiomyopathy CHF ppm Hypothyroidism PAD CKD3 recent traumatic brain injury Cognitive Impairment/Dementia following Intracranial Hemorrhage from fall treated at [facility] non-operatively a month ago presents from [facility]
living d/t concerns progressive SOB hypoxia requiring 4L lower ext swelling roughly 1 day duration. Presenting blood pressure>190/>100. Patient admitted to the ICU for blood pressure support
Renal consult for acute on chronic kidney disease with a creatinine of 1.8 at baseline 1.5-1.6
Patient confused unable to obtain history although she is awake and alert has no complaints
No chest pain no nausea vomiting she is urinating without difficulty
Past Medical History
CAD ischemic Cardiomyopathy CHF ppm Hypothyroidism PAD CKD3 recent traumatic brain injury Cognitive Impairment/Dementia following Intracranial Hemorrhage f
Social History
Unobtainable as patient is a dementia
Tobacco: Non-Smoker
Family History
Unobtainable as patient on clinical status and dementia
Allergies / Home Medications
Allergy/AdvReac Type Severity Reaction Status Date / Time
amoxicillin Allergy Vomiting Verified 11/19/22 22:42
Beta-Blockers Allergy list Verified 11/19/22 22:42
(Beta-Adrenergic Bloc states
worsens
Raynauds
codeine Allergy Nausea / Verified 11/19/22 22:42
Vomiting
�Medication �Instructions �Recorded �Confirmed �Type
levothyroxine 25 mcg tablet 50 mcg PO DAILY@0600 11/19/22 11/29/24 History
(Synthroid)
acetaminophen 325 mg tablet 650 mg PO Q6HPRN PRN mild pain 11/29/24 11/29/24 History
(Tylenol)
atorvastatin 40 mg tablet (Lipitor) 40 mg PO HS 11/29/24 11/29/24 History
bisacodyl 10 mg rectal suppository 10 mg [place] DAILYPRN PRN constipation 11/29/24 11/29/24 History
(Dulcolax (bisacodyl))
carvedilol 12.5 mg tablet (Coreg) 12.5 mg PO BID 11/29/24 11/29/24 History
hydralazine 25 mg tablet 25 mg PO BID 11/29/24 11/29/24 History
lidocaine 4 % topical patch 1 patch topical DAILYPRN PRN back 11/29/24 11/29/24 History
pain
methocarbamol 500 mg tablet 500 mg PO Q8HPRN PRN muscle spams 11/29/24 11/29/24 History
sorbitol 70 % solution 30 ml PO DAILYPRN PRN constipation 11/29/24 11/29/24 History
torsemide 20 mg tablet 20 mg PO DAILY 11/29/24 11/29/24 History
Review of Systems
-
Unable to obtain full review of systems at this time due to: Dementia
All other systems: Negative unless noted
Physical Exam
Vital Signs
Vital Signs
Temp Pulse Resp BP Pulse Ox
98.7 F 80 48 180/103 97
11/30/24 07:00 11/30/24 08:17 11/30/24 06:15 11/30/24 08:17 11/30/24 09:13
Lab Results
WBC 4.1 10^3/uL (4.8-10.8) L 11/30/24 04:02
RBC 4.52 10^6/uL (4.20-5.40) 11/30/24 04:02
Hgb 11.2 g/dL (12.0-16.0) L 11/30/24 04:02
Hct 35.8 % (37.0-47.0) L 11/30/24 04:02
Plt Count 119 10^3/uL (130-400) L 11/30/24 04:02
Sodium 143 mmol/L (135-145) 11/30/24 04:02
Potassium 3.5 mmol/L (3.5-5.1) 11/30/24 04:02
Chloride 106 mmol/L (98-107) 11/30/24 04:02
Carbon Dioxide 28 mmol/L (22-30) 11/30/24 04:02
BUN 32 mg/dl (7-17) H 11/30/24 04:02
Creatinine 1.6 mg/dL (0.6-1.0) H 11/30/24 04:02
eGFR 32.00 11/30/24 04:02
Glucose 114 mg/dl (70-99) H 11/30/24 04:02
Calcium 9.6 mg/dl (8.4-10.2) 11/30/24 04:02
Phosphorus 3.1 mg/dl (2.5-4.5) 11/30/24 04:02
Czu-L-Rsrensbpyju Pept > 05024 pg/ml 11/29/24 14:19
Albumin 3.9 g/dl (3.5-5.0) 11/29/24 14:19
Physical Exam
General no acute distress
HEENT no cephalic atraumatic extraocular muscle intact no scleral icterus no JVD neck supple
lungs fine crackles bilateral mild
heart regular S1-S2 positive
abdomen soft nontender positive bowel sounds
extremities +1 edema pulses present bilateral
Neurologically nonfocal alert and oriented x 1
Skin no lesions no abrasions no petechiae
Psych flat affect
Data Reviewed
-
Radiology: Image Personally Visualized and interpreted (Bilateral pulmonary edema)
Labs: Labs Reviewed by me
Critical Care Time (in minutes): 35 minutes
Assessment/Plan
-
84F CAD ischemic Cardiomyopathy CHF ppm Hypothyroidism PAD CKD3 recent traumatic brain injury Cognitive Impairment/Dementia following Intracranial Hemorrhage from fall treated at [facility] non-operatively a month ago presents from [facility]
living d/t concerns progressive SOB hypoxia requiring 4L lower ext swelling roughly 1 day duration. Presenting blood pressure>190/>100. Patient admitted to the ICU for blood pressure support
Renal consult for acute on chronic kidney disease with a creatinine of 1.8 at baseline 1.5-1.6
Impression:
Acute on chronic kidney disease stage IIIb with a baseline creatinine of 1.5-1.6 with admitting creatinine 1.8
CHF with pulmonary edema
Hypertensive urgency
Dementia/cognitive impairment status post intracranial hemorrhage
Plan:
out Patient on torsemide 20 mg /continue with IV diuretic
Daily weights
Sodium restriction
Hydralazine increased noted
Echo
Suggest adding RYANN inhibitor or angiotensin receptor joseline for better blood pressure control
Total Time Spent with Patient (in minutes): 35 minutes
--- NOTE | 2024-11-30 09:51 | CON.CAR ---
Addendum entered and electronically signed by Daniel Ovalles DO 11/30/24 16:16:
I saw and examined the patient.
The Manager Bridge's note was reviewed and I agree with the note.
Comment:
PCP: ALEXA Blanchard at [place]
Primary Freight Adjuster:
Impression:
Hypertensive emergency, improved
Hypoxemia improved
NonMI Troponin elevation, peak 0.050
Chronic kidney disease
Coronary artery disease status post CABG
Recovered Ischemic cardiomyopathy, EF 50% by echo Oct 2024 outside facility
Hx PPM
Atrial fibrillation not anticoagulated with falls
Chronic combined systolic and diastolic heart failure
Intracranial hemorrhages status post falls 10/2024
History of hematuria
Previously on Xarelto-stopped due to hematuria several weeks prior to 08/2024 for fall per records from [place]
Liver mass detected on right upper quadrant ultrasound 10/2024 has had follow-up with GI
Previous cardiovascular testing:
Echo 10/04/2024: LVEF 50% (had been 20-25% in past), obtained from [facility] admission note from 11/01/2024.
awaiting more records from last [facility] admission
Plan:
HPI: 84-year-old female with history of coronary artery disease s/p CABG x 3, ischemic cardiomyopathy, chronic combined systolic/diastolic heart failure, permanent pacemaker, atrial fibrillation, chronic kidney disease stage III, PAD,
hypothyroidism, recent traumatic brain injury, cognitive impairment/dementia following intracranial hemorrhage from fall treated at [facility] nonoperatively 1 month ago. She presented to [facility] from [facility] 11/29/2024 due to
concerns of progressive shortness of breath, hypoxia, lower extremity edema. Blood pressure elevated, as high as 206/104 and pt hypoxic on exam. Troponin mildly elevated, BNP greater than 27,000. Cardiology consulted for management of
hypertensive emergency, heart failure, history of pacemaker.
-Obtained some records from admission to [facility] from 11/01/2024: Echo 10/04/2024: LVEF 50% (had been 20-25% in past). Per records pt had previous fall and was at [facility] ICU with multiple traumatic brain bleeds. She then presented to
[facility] 10/04/2024 with syncope and fall and found to have sustained intra parenchymal and subarachnoid hemorrhages in the bilateral frontal lobe and subarachnoid hemorrhage in the bilateral temporal lobe. Started on Keppra. Seen by neurosurgery.
Hemorrhage stable on repeat CT. Had cardiac workup that was unremarkable including pacemaker interrogation. Patient has history of being on Xarelto but it was stopped a few weeks prior to her fall due to hematuria. While in [facility] found to
have liver mass and had subsequent follow-up with GI. Echo on admission to [facility] on 10/04/2024 showed EF of 50%, improved from previous when EF was 20 to 25%. Heart failure regimen included torsemide 20 mg daily, beta-joseline, hydralazine, and
potassium. Has noted history of paroxysmal A-fib that was rate controlled with carvedilol. Not on oral anticoagulation due to risk of fall. There was consideration for starting aspirin if approved by neurosurgery.
Awaiting records from [facility].
Since admission to [place] she has received 2 doses of Lasix 40 mg IV. Weight on bed scales down 6 pounds since admission and currently 122 pounds.
Creatinine 1.8 on admission 11/29/2024. 1.6 11/30/2024 which is her baseline. In review of records creatinine was 1.65 on 10/07/2024.
Continue IV diuretic with eventual transition to oral Torsemide.
Monitor Is and Os, daily wt and cr
Echo pending.
Cont medical tx for nonischemic myocardial injury
Discussed with nursing.
Original Note:
Consultation
Consultation Request
Date/Time Consultation Requested: 11/29/2024, 1859
Date/Time Consultation Performed: 11/30/2024, 0972
Requesting Provider: Dr Cast
Performing Provider: ALEXA Bernal for Dr Ovalles
Reason for Consultation: hypertensive emergency, heart failure, ALYSON
Medical History
-
Chief Complaint: SOB
History of Present Illness:
84-year-old female with history of coronary artery disease s/p CABG x 3, ischemic cardiomyopathy, chronic combined systolic/diastolic heart failure, permanent pacemaker, atrial fibrillation, chronic kidney disease stage III, PAD, hypothyroidism,
recent traumatic brain injury, cognitive impairment/dementia following intracranial hemorrhage from fall treated at [facility] nonoperatively 1 month ago. She presented to the ED from [facility] due to concerns of progressive
shortness of breath, hypoxia, lower extremity edema. Blood pressure elevated, as high as 206/104.
Obtained some records from admission to [facility] from 11/01/2024: Echo 10/04/2024: LVEF 50% (had been 20-25% in past).
ER eval:
EKG: Vpaced, underlying atrial flutter?
proBNP >27,000
troponin: 0.050->0.044->0.046
creat 1.8
CXR: mod cardiomegaly with pulm edema and B/L pleural effusions
HCT: probable old 3 mm lacunar infarct on L
PMH:
HTN
CAD s/p CABG
ischemic CM
chronic combined systolic/diastolic HF
atrial fibrillation
pacemaker
CKD stage 3
PAD
hypothyroidism
TBI
intracranial hemorrhage from fall-treated nonoperatively at [facility]-
dementia/cognitive impairment
liver mass -saw GI at [facility]
Past Medical History
Past Medical History: Other (as above)
Past Surgical History: Cardiac (CABG )
Social History
Tobacco: Non-Smoker
Alcohol: None
Family History
Family History: Unable to Obtain
Allergies / Home Medications
Allergy/AdvReac Type Severity Reaction Status Date / Time
amoxicillin Allergy Vomiting Verified 11/19/22 22:42
Beta-Blockers Allergy list Verified 11/19/22 22:42
(Beta-Adrenergic Bloc states
worsens
Raynauds
codeine Allergy Nausea / Verified 11/19/22 22:42
Vomiting
�Medication �Instructions �Recorded �Confirmed �Type
levothyroxine 25 mcg tablet 50 mcg PO DAILY@0600 11/19/22 11/29/24 History
(Synthroid)
acetaminophen 325 mg tablet 650 mg PO Q6HPRN PRN mild pain 11/29/24 11/29/24 History
(Tylenol)
atorvastatin 40 mg tablet (Lipitor) 40 mg PO HS 11/29/24 11/29/24 History
bisacodyl 10 mg rectal suppository 10 mg AR DAILYPRN PRN constipation 11/29/24 11/29/24 History
(Dulcolax (bisacodyl))
carvedilol 12.5 mg tablet (Coreg) 12.5 mg PO BID 11/29/24 11/29/24 History
hydralazine 25 mg tablet 25 mg PO BID 11/29/24 11/29/24 History
lidocaine 4 % topical patch 1 patch topical DAILYPRN PRN back 11/29/24 11/29/24 History
pain
methocarbamol 500 mg tablet 500 mg PO Q8HPRN PRN muscle spams 11/29/24 11/29/24 History
sorbitol 70 % solution 30 ml PO DAILYPRN PRN constipation 11/29/24 11/29/24 History
torsemide 20 mg tablet 20 mg PO DAILY 11/29/24 11/29/24 History
Review of Systems
-
Unable to obtain full review of systems at this time due to: Acuity and Other (pt sleeping)
Physical Exam
Vital Signs
Temp Pulse Resp BP Pulse Ox
98.7 F 80 39 180/103 97
11/30/24 07:00 11/30/24 08:17 11/30/24 08:13 11/30/24 08:17 11/30/24 09:13
Lab Results
11/30/24 04:02
11/30/24 04:02
Troponin I 0.046 ng/ml H* 11/30/24 01:25
Rgh-D-Ocomuzisnuy Pept > 68690 pg/ml 11/29/24 14:19
GEN: No distress, sleeping, not able to awaken
HEENT: supple, anicteric, mmm
LUNGS: BS rhonchorous on expiration, few rales at bases
CV: Reg, S1/S2, 1/6 syst LSB, no murmur
ABD: soft, BS+, NT/ND
EXT: trace LE edemal
SKIN: No rash
Impression / Plan
-
PCP: ALEXA Blanchard at [place]
Primary Freight Adjuster:
Impression:
Hypertensive emergency
Hypoxemia
Troponin elevation
Chronic kidney disease
Coronary artery disease status post CABG
Ischemic cardiomyopathy
Pacemaker
Atrial fibrillation
Chronic combined systolic and diastolic heart failure
Intracranial hemorrhages status post falls 10/2024
History of hematuria
Previously on Xarelto-stopped due to hematuria several weeks prior to 10/2020 for fall per records from [place]
Liver mass detected on right upper quadrant ultrasound 10/2024 has had follow-up with GI
Previous cardiovascular testing:
Echo 10/04/2024: LVEF 50% (had been 20-25% in past), obtained from [facility] admission note from 11/01/2024.
awaiting more records from last [facility] admission
Plan:
-84-year-old female with history of coronary artery disease s/p CABG x 3, ischemic cardiomyopathy, chronic combined systolic/diastolic heart failure, permanent pacemaker, atrial fibrillation, chronic kidney disease stage III, PAD, hypothyroidism,
recent traumatic brain injury, cognitive impairment/dementia following intracranial hemorrhage from fall treated at [facility] nonoperatively 1 month ago. She presented to [facility] from [facility] living 11/29/2024 due to concerns of
progressive shortness of breath, hypoxia, lower extremity edema. Blood pressure elevated, as high as 206/104 and pt hypoxic on exam. Troponin mildly elevated, BNP greater than 27,000. Cardiology consulted for management of hypertensive
emergency, heart failure, history of pacemaker.
-Obtained some records from admission to [facility] from 11/01/2024: Echo 10/04/2024: LVEF 50% (had been 20-25% in past). Per records pt had previous fall and was at [facility] ICU with multiple traumatic brain bleeds. She then presented to
[facility] 10/04/2024 with syncope and fall and found to have sustained intra parenchymal and subarachnoid hemorrhages in the bilateral frontal lobe and subarachnoid hemorrhage in the bilateral temporal lobe. Started on Keppra. Seen by neurosurgery.
Hemorrhage stable on repeat CT. Had cardiac workup that was unremarkable including pacemaker interrogation. Patient has history of being on Xarelto but it was stopped a few weeks prior to her fall due to hematuria. While in [facility] found to
have liver mass and had subsequent follow-up with GI. Echo on admission to [facility] on 10/04/2024 showed EF of 50%, improved from previous when EF was 20 to 25%. Heart failure regimen included torsemide 20 mg daily, beta-joseline, hydralazine, and
potassium. Has noted history of paroxysmal A-fib that was rate controlled with carvedilol. Not on oral anticoagulation due to risk of fall. There was consideration for starting aspirin if approved by neurosurgery. I am awaiting records from
[facility].
--Since admission to [place] she has received 2 doses of Lasix 40 mg IV. Weight on bed scales down 6 pounds since admission and currently 122 pounds.
-Creatinine 1.8 on admission 11/29/2024. 1.6 11/30/2024. In review of records creatinine was 1.65 on 10/07/2024.
-Continue IV diuretic with eventual transition to oral Torsemide.
-Echo from today pending
-Mild elevation in troponin, continue to trend. Likely nonischemic myocardial injury
-Trying to obtain records from [facility] to get further history regarding her history of CAD, heart failure, atrial fibrillation, and pacemaker.
-telemetry: Vpaced 80s
-BPs improved and did not require Cardene gtt
-agree with uptitrating hydralazine and continuing Carvedilol
-not a candidate for anticoagulation in setting of h/o afib given falls and multiple subarachnoid hemmorhages in recent past. HRs are controlled.
Data Reviewed
-
EKG: Tracing Personally Visualized and interpreted
Labs: Labs Reviewed by me
--- NOTE | 2024-11-30 10:17 | PTCARENOTE ---
Received pt pleasantly confused in bed on 3lnc with sats mid to high 90s. Tachpneic, but denies sob. 100% vpaced on monitor. B/l lower ext pitting edema. Pt follows simple commands at times but not consistently. REAGAN Otherwise please refer to
flowsheet.
--- NOTE | 2024-11-30 10:22 | CON.INTV ---
Consultation
Consultation Request
Date/Time Consultation Requested: 11/29/2024
Date/Time Consultation Performed: 11/30/2024
Requesting Provider: Dr. Cats
Performing Provider: Dr. Dev Madison
Reason for Consultation: Hypertensive emergency
Medical History
-
History of Present Illness:
84-year-old man with history of coronary artery disease, ischemic cardiomyopathy, pacemaker in place, hypothyroidism, peripheral arterial disease, chronic kidney disease stage III, recent traumatic brain injury, cognitive impairment/dementia,
ambulatory dysfunction presented to [facility] from [facility] for concerns of progressive shortness of breath, hypoxemia requiring 4 L supplemental oxygen, progressive lower extremity swelling for about 1 to 2 days. Mental
status appears to be baseline.
He was found to be significantly hypertensive with a systolic blood pressure greater than 190. Patient denies any cough, hemoptysis, phlegm production. Denies any headache or blurry vision.
Chest x-ray demonstrated cardiomegaly with pulmonary edema and bilateral pleural effusions.
Patient was admitted to the critical care unit for blood pressure control and therapy for pulmonary edema.
We were consulted for critical care management.
Past Medical History
Past Medical History: Other (See assessment and plan)
Social History
Tobacco: Non-smoker
Alcohol: None
Drug: None
Personal:
Living: Assisted Living ([facility])
Employment: Retired
Family History
Family History: Reviewed & Not Pertinent
Allergies / Home Medications
Allergies
Allergy/AdvReac Type Severity Reaction Status Date / Time
amoxicillin Allergy Vomiting Verified 11/19/22 22:42
Beta-Blockers Allergy list Verified 11/19/22 22:42
(Beta-Adrenergic Bloc states
worsens
Raynauds
codeine Allergy Nausea / Verified 11/19/22 22:42
Vomiting
Home Medications
�Medication �Instructions �Recorded �Confirmed �Last Taken �Type
levothyroxine 25 mcg tablet 50 mcg PO DAILY@0600 11/19/22 11/29/24 Unknown History
(Synthroid)
acetaminophen 325 mg tablet 650 mg PO Q6HPRN PRN mild pain 11/29/24 11/29/24 Unknown History
(Tylenol)
atorvastatin 40 mg tablet (Lipitor) 40 mg PO HS 11/29/24 11/29/24 Unknown History
bisacodyl 10 mg rectal suppository 10 mg VT DAILYPRN PRN constipation 11/29/24 11/29/24 Unknown History
(Dulcolax (bisacodyl))
carvedilol 12.5 mg tablet (Coreg) 12.5 mg PO BID 11/29/24 11/29/24 Unknown History
hydralazine 25 mg tablet 25 mg PO BID 11/29/24 11/29/24 Unknown History
lidocaine 4 % topical patch 1 patch topical DAILYPRN PRN back 11/29/24 11/29/24 Unknown History
pain
methocarbamol 500 mg tablet 500 mg PO Q8HPRN PRN muscle spams 11/29/24 11/29/24 Unknown History
sorbitol 70 % solution 30 ml PO DAILYPRN PRN constipation 11/29/24 11/29/24 Unknown History
torsemide 20 mg tablet 20 mg PO DAILY 11/29/24 11/29/24 Unknown History
Review of Systems
-
History Source: Patient
All other systems: Negative unless noted
Vitals / Labs / Diagnostic Testing
Vital Signs
Temp Pulse Resp BP Pulse Ox
98.7 F 80 27 144/70 96
11/30/24 07:00 11/30/24 10:00 11/30/24 10:00 11/30/24 10:00 11/30/24 10:00
Lab Data
11/30/24 04:02
11/30/24 04:02
Laboratory Results
11/30/24
01:25
PT 15.3 H
INR 1.16
APTT 28.0
Diagnostic Testing:
Physical Exam
-
HEENT: Normocephalic
Cardiovascular: S1/S2
Respiratory: Non-Labored Respirations
GI: Soft and Non Distended
Neurology: Awake, Alert, No Motor Deficits and Other (Baseline mental status)
Skin: Warm
General: Comfortable
Assessment
-
. 84-year-old man with past medical history noted, admitted to the hospital with shortness of breath, hypoxemia, progressive lower extremity edema, chest x-ray consistent with pulmonary edema, proBNP significantly elevated, hypertensive with
systolic blood pressure greater than 180 systolic. Admitted to the ICU for IV antihypertensive therapy and hemodynamic monitoring.
Hypertension is emergency/urgency
Acute on chronic heart failure unknown type, no echocardiogram available-pulmonary edema on chest x-ray
proBNP greater than 27,000
Chest x-ray: Reviewed, status poststernotomy/pacemaker in place/pulmonary vascular congestion with mild bilateral pleural effusion
EKG 11/29/2024: Ventricular paced rhythm with underlying atrial tachycardia. No previous to compare
Mild troponin leak in the setting of heart failure
Chronic kidney disease
Thrombocytopenia
History of intracranial hemorrhage
CT head 11/29/2024: Old 3 mm lacunar infarct. No acute abnormalities. Moderate diffuse cortical atrophy
Conditions present prior admission:
History of intracranial hemorrhage status post traumatic brain injury from falling monitor at [facility] 1 month ago
Cognitive impairment/dementia
Wheelchair-bound since hemorrhage
Heart failure unknown type
Suspected coronary artery disease status post sternotomy
DNR status
Assessment and plan:
Patient is clinically improved from overnight-Never required Cardene drip
Responded well to diuresis
Fluid balance negative
-
Continue IV diuresis
Echocardiogram pending
Trend troponins
Cardiology has been consulted for evaluation
Continue carvedilol
Hydralazine as needed
-
Follow renal function electrolytes
Nephrology following as well
-
Advance diet
Aspiration precautions
DVT prophylaxis-heparin subcu-
-
Currently on 2 L supplemental oxygen, wean off as able
Incentive spirometry
Lung exam relatively clear
-
Given clinical improvement, response to diuresis, no requirements of IV antihypertensive will transfer to telemetry.
Patient is DNR status
Critical care team will sign off.
Please call pulmonary if any respiratory issues arise.
--- NOTE | 2024-11-30 10:50 | PTCARENOTE ---
pt had bedside echo
--- NOTE | 2024-11-30 10:55 | PTCARENOTE ---
pt had echo at bedside
--- NOTE | 2024-11-30 12:47 | PTCARENOTE ---
Report called to Brigitte who will assume care of pt. No questions at this time.
--- NOTE | 2024-11-30 13:31 | PTCARENOTE ---
Left message for son about pt being transferred to new room
--- NOTE | 2024-11-30 14:56 | CM ---
CM following re: discharge planning.
Reviewed pt's chart, met with pt.
Pt is an 84 year old female, admitted with primary dx of Hypertensive urgency. Acute on chronic heart failure
Pt is not a great historian. Information obtained from pt's son Dorian. Per son, pt has been a resident of [facility] for about a month, has 3 supportive children. Per son, pt ambulates with a walker during therapy sessions,
has been using wheelchair mostly. Pt's son stated it will be the best for the pt to return straight back to [facility] and they will continue PT and OT.
PCP: Romy Rodriguez
Pharmacy: [facility]
D/C plan: return back to [facility] with resumptions of PT/OT services.
CM will follow with discharge plan updates as hospitalization progresses
--- NOTE | 2024-11-30 15:31 | W.PN.UPDATE ---
Update Note
Progress Note Update
Obtained records from [place]:
Patient was evaluated there by cardiology on 10/04/2024. Patient presented following a fall after she had gotten up in the middle of the night to use the bathroom. Unclear if she had syncope as she did not recall. Her pacemaker was interrogated
and showed underlying atrial fibrillation with no high rate episodes and normal device function. Fall/possible syncope not arrhythmogenic in origin. It was during this admission that she was found to have subarachnoid hemorrhage. She had been
previously started on Xarelto for a suspected apical LV thrombus on echo 03/2024. Xarelto had been discontinued 08/2024 for hematuria. Was advised to remain off Xarelto given subarachnoid hemorrhage. To consider aspirin 81 mg daily given extensive
vascular history if cleared by neurosurgery-unclear if she saw neurosurgery in followup.
pt follows with [facility] in [facility], Dr Donovan.
Has h/o carotid disease s/p R CEA 2019, CAD s/p CABG x 3 (CHRISTOPHER-LAD, SVG-RCA and D1 in 2017),apical LV thrombus on echo 03/2024-treated with Xarelto, discontinued 08/2024 for hematuria, paroxysmal afib, pacemaker for SSS, PAD s/p PVI.
Echo 04/20/2024: LVEF 15-20%, sev dilated LA, dilated and hypokinetic RV, mild , mod MR, mild-mod TR.
Pacemaker interogation 10/04/2024: underlying afib, nl device fxn with no high ventricular rates
Based on above findings, no change in current care.
Continue BP mgmt with Coreg, Hydralazine- can be uptitrated if needed.
cont IV diuretics
She was previously on Spironolactone 12.5 mg daily -unclear when stopped. Given renal fxn, would hold for now.
afib appears to be permanent based on pacemaker interrogation at [place], not candidate for OAC given subarachnoid hemmorhage
Echo today 11/30/2024: EF 65-70%, Stage 3 diastolic dysfxn, no thrombus noted
--- NOTE | 2024-11-30 18:35 | PTCARENOTE ---
Patient transferred from ICU. Patient with history of multiple falls. Bed alarm placed. Patient with leg contractures and history or dementia. Patient cannot be taught due to cognitive impairment
[2024-11-30] MEDS: LIPITOR 40 MG PO (21:02)
[2024-11-30] MEDS: PEPCID 20 MG PO (21:02)
[2024-12-01] VITALS (7 sets, daily range): BP systolic 144–189; BP diastolic 82–111; PULSE 83; O2SAT 96; BMI 25.6
[2024-12-01 07:12] LABS: % Basophils 0.5 % (0-2); % Eosinophils 0.5 % (0-6); % Immature Granulocytes 0.3 % (0-0.5); % Neutrophils 74.5 % (42.2-75.2); Absolute Lymphocytes 0.4 10^3/uL (1.2-3.4); Absolute Monocytes 0.5 10^3/uL (0.1-0.6); Absolute Neutrophils 2.8 10^3/uL (1.4-6.5); Hematocrit 34.5 % (37.0-47.0); Hemoglobin 10.8 g/dL (12.0-16.0); Mean Corp Hgb Conc. 30.8 g/dL (33.0-37.0); Mean Corpuscular Hgb 24.1 pg (27.0-31.0); Mean Corpuscular Volume 78.3 fL (81.0-99.0); Nucleated Red Blood Cells % 0 %; Platelet Count 123 10^3/uL (130-400); Red Blood Cell Count 4.48 10^6/uL (4.20-5.40); Red Cell Dist. Width 20.7 % (11.5-14.5); White Blood Cell Count 3.7 10^3/uL (4.8-10.8)
[2024-12-01 07:20] LABS: Blood Urea Nitrogen 26 mg/dl (7-17); Calcium 9.2 mg/dl (8.4-10.2); Carbon Dioxide 31 mmol/L (22-30); Chloride 104 mmol/L (98-107); Estimated Creatinine Clearance 19 ml/min; Glucose 107 mg/dl (70-99); Magnesium 2.3 mg/dl (1.6-2.3); Potassium 2.9 mmol/L (3.5-5.1); Sodium 142 mmol/L (135-145); eGFR 29.76
[2024-12-01] MEDS: SYNTHROID 50 MCG PO (07:44)
--- NOTE | 2024-12-01 09:17 | W.PN.HOSP.TC ---
Today's Communication/Plan
-
Continue Lasix with following creatinine
Replace potassium
Add doxycycline
PT OT
Once creatinine stabilizes consider adding SGLT2 inhibitors
Assessment / Plan
Assessment / Plan
84-year-old female with coronary disease presented from [facility] with shortness of breath and lower extremity edema. Patient was also confused. Her pressure was elevated in the ER. When I ask her any questions her answer is 'I do
not know'.
Awake and alert but confused
Cardiovascular system S1-S2 appreciated, systolic murmur at apex
Chest bilateral rales
Abdomen soft and nontender
Bilateral lower extremity edema noted
Skin discoloration just above the ankle posteriorly on the left, skin tear on the right chest over the ankle
Chest x-ray reviewed by me-by bilateral pulmonary edema and effusion
Echo 11/30/2024-moderate concentric LVH, normal regional wall motion, EF 65 to 70%, stage III diastolic dysfunction. No thrombus. Mild MR, severely dilated LA, mild TR, pulmonary artery pressure 48 mmHg, moderately dilated RA, normal RV size and
systolic function
# Acute heart failure-acute on chronic HFrEF
proBNP more than 27,000
Echo 04/20/2024-EF 15 to 20%, now improved as above
Continue Lasix 40 mg IV twice daily-takes torsemide 20 mg daily at home
Daily weights intake output charting
Continue Coreg
Need to consider starting SGLT2 inhibitors this admission
Unclear why she is not on spironolactone-possibly secondary to renal function
RYANN inhibitor/Arni/ARB-hold now secondary to diuresis. Once creatinine stabilizes after adequate diuresis consider adding.
Cardiology following
# URI symptoms with productive cough-add doxycycline. Check sputum cultures if possible
# Acute hypoxic respiratory insufficiency secondary to below
# Hypokalemia-replace IV and p.o.
# Hypertensive emergency with pulmonary edema
Did not require Cardene drip per discussion with nursing
Increase p.o. hydralazine to 25 every 8 hours. Continue as needed IV hydralazine, continue Coreg
Pressure likely volume mediated
# History of coronary artery disease-history of stents-CABG [address] Donovan with [facility], [facility] [place]
# Paroxysmal atrial fibrillation-not on anticoagulation as outpatient. Was started on Xarelto and discontinued August 2024. Now on Coreg
# History of pacemaker placement for sick sinus syndrome
# Elevated troponin-likely nonischemic myocardial injury
# History of LV thrombus on echo March 2024 Xarelto was started and was discontinued
# CKD stage III-unclear if has ALYSON
# Hyperlipidemia-continue statin
# Hyperglycemia-Hemoglobin A1c 5.8
# Hypothyroidism-continue Synthroid
# Mild thrombocytopenia-follow
# History of intracranial hemorrhage in 2021 and was transferred to [facility]
# History of right CEA 2019
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
# Cognitive impairment/Dementia
# Ambulatory sobmolgqvnv-mdlieglplj-izmhh now
# DVT prophylaxis-subcutaneous heparin
# DNR
Old records update obtained from cardiology notes
Spoke to son and updated.
Anticipated Discharge: 24 - 48 hours
Subjective/Interval History
-
Date of Service: December 01, 2024
Objective Data
-
Labs:
Laboratory Results
12/01/24
05:57
WBC 3.7 L
Hgb 10.8 L
Hct 34.5 L
Plt Count 123 L
Sodium 142
Potassium 2.9 L
Chloride 104
Carbon Dioxide 31 H
BUN 26 H
Creatinine 1.7 H
Glucose 107 H
Calcium 9.2
Vital Signs:
Vital Signs
Temp Pulse Resp BP Pulse Ox
98 F 82 18 151/82 97
12/01/24 02:50 12/01/24 02:50 12/01/24 02:50 12/01/24 02:50 12/01/24 02:50
I&O
11/30/24 12/01/24 12/02/24
06:59 06:59 06:59
Intake Total 120 / 120 700 / 700
Output Total 1400 / 1400 425 / 425
Balance -1280 / -1280 275 / 275
[2024-12-01] MEDS: COREG 12.5 MG PO ×2 (10:09→20:42)
[2024-12-01] MEDS: DESENEX/MITRAZOL/ZEASORB 1 APPLIC TOPICAL ×2 (10:09→20:43)
[2024-12-01] MEDS: KCL 20 MEQ PO (10:09)
[2024-12-01] MEDS: HEPARIN 5000 UNITS SC ×3 (10:10→23:41)
[2024-12-01] MEDS: APRESOLINE 25 MG PO ×3 (10:10→23:41)
[2024-12-01] MEDS: KCL 270 MEQ IV (10:12)
[2024-12-01] MEDS: LASIX 40 MG IV ×2 (10:12→16:16)
[2024-12-01] MEDS: FLUSH (NSS) 1 FLUSH IV (10:19)
[2024-12-01] MEDS: VIBRAMYCIN 100 MG PO ×2 (11:09→20:42)
[2024-12-01] MEDS: APRESOLINE 5 MG IV (11:10)
--- NOTE | 2024-12-01 12:23 | W.PN.CARDCBS ---
Today's Communication / Plan
-
Cont IV lasix
HR controlled
Monitor cr
Impression / Plan
-
.
PCP: ALEXA Blanchard at [facility]
Primary Signal Intelligence/Electronic Warfare:[facility] in [facility], [place], Dr Donovan.
Impression:
Hypertensive emergency, improved
Hypoxemia improved
NonMI Troponin elevation, peak 0.050
Chronic kidney disease
Coronary artery disease status post CABG
Recovered Ischemic cardiomyopathy, EF 50% by echo Oct 2024 outside facility
Hx PPM
Atrial fibrillation not anticoagulated with falls
Chronic combined systolic and diastolic heart failure
Intracranial hemorrhages status post falls 10/2024
History of hematuria
Previously on Xarelto-stopped due to hematuria several weeks prior to 08/2024 for fall per records from [place]
Liver mass detected on right upper quadrant ultrasound 10/2024 has had follow-up with GI
Previous cardiovascular testing:
Echo 10/04/2024: LVEF 50% (had been 20-25% in past), obtained from [place] admission note from 11/01/2024.
awaiting more records from last [place] admission
Records from [place]:
Patient was evaluated there by cardiology on 10/04/2024. Patient presented following a fall after she had gotten up in the middle of the night to use the bathroom. Unclear if she had syncope as she did not recall. Her pacemaker was interrogated
and showed underlying atrial fibrillation with no high rate episodes and normal device function. Fall/possible syncope not arrhythmogenic in origin. It was during this admission that she was found to have subarachnoid hemorrhage. She had been
previously started on Xarelto for a suspected apical LV thrombus on echo 03/2024. Xarelto had been discontinued 08/2024 for hematuria. Was advised to remain off Xarelto given subarachnoid hemorrhage. To consider aspirin 81 mg daily given extensive
vascular history if cleared by neurosurgery-unclear if she saw neurosurgery in followup.
pt follows with [facility] in [facility], [place], Dr Donovan.
Has h/o carotid disease s/p R CEA 2019, CAD s/p CABG x 3 (CHRISTOPHER-LAD, SVG-RCA and D1 in 2018),apical LV thrombus on echo 03/2024-treated with Xarelto, discontinued 08/2024 for hematuria, paroxysmal afib, pacemaker for SSS, PAD s/p PVI.
Echo 04/20/2024: LVEF 15-20%, sev dilated LA, dilated and hypokinetic RV, mild , mod MR, mild-mod TR.
Pacemaker interogation 10/04/2024: underlying afib, nl device fxn with no high ventricular rates
Based on above findings, no change in current care.
Continue BP mgmt with Coreg, Hydralazine- can be uptitrated if needed.
cont IV diuretics
She was previously on Spironolactone 12.5 mg daily -unclear when stopped. Given renal fxn, would hold for now.
afib appears to be permanent based on pacemaker interrogation at [facility], not candidate for OAC given subarachnoid hemmorhage
Echo 11/30/2024: EF 65-70%, Stage 3 diastolic dysfxn, no thrombus noted
Plan:
HPI: 84-year-old female with history of coronary artery disease s/p CABG x 3, ischemic cardiomyopathy, chronic combined systolic/diastolic heart failure, permanent pacemaker, atrial fibrillation, chronic kidney disease stage III, PAD,
hypothyroidism, recent traumatic brain injury, cognitive impairment/dementia following intracranial hemorrhage from fall treated at [facility] nonoperatively 1 month ago. [facility]/2024 due to
concerns of progressive shortness of breath, hypoxia, lower extremity edema. Blood pressure elevated, as high as 206/104 and pt hypoxic on exam. Troponin mildly elevated, BNP greater than 27,000. Cardiology consulted for management of
hypertensive emergency, heart failure, history of pacemaker.
-Obtained some records from admission to [place] from 11/01/2024: Echo 10/04/2024: LVEF 50% (had been 20-25% in past). Per records pt had previous fall and was at [facility] ICU with multiple traumatic brain bleeds. She then presented to
[facility] 10/04/2024 with syncope and fall and found to have sustained intra parenchymal and subarachnoid hemorrhages in the bilateral frontal lobe and subarachnoid hemorrhage in the bilateral temporal lobe. Started on Keppra. Seen by neurosurgery.
Hemorrhage stable on repeat CT. Had cardiac workup that was unremarkable including pacemaker interrogation. Patient has history of being on Xarelto but it was stopped a few weeks prior to her fall due to hematuria. While in [place] found to
have liver mass and had subsequent follow-up with GI. Echo on admission to [facility] on 10/04/2024 showed EF of 50%, improved from previous when EF was 20 to 25%. Heart failure regimen included torsemide 20 mg daily, beta-joseline, hydralazine, and
potassium. Has noted history of paroxysmal A-fib that was rate controlled with carvedilol. Not on oral anticoagulation due to risk of fall. There was consideration for starting aspirin if approved by neurosurgery.
Received records from [facility].
Since admission to [place] she has received 2 doses of Lasix 40 mg IV. Weight down 6 pounds since admission and currently 122 pounds.
Creatinine 1.8 on admission 11/29/2024. 1.6 11/30/2024 which is her baseline and 1.7 on Dec 01. In review of records creatinine was 1.65 on 10/07/2024.
Continue IV diuretic with eventual transition to oral Torsemide.
Monitor Is and Os, daily wt and cr
Echo with preserved EF Nov 30 2024.
Cont medical tx for nonischemic myocardial injury
Not a candidate for anticoagulation in setting of h/o afib given falls and multiple subarachnoid hemmorhages in recent past. HRs are controlled.
Progress Note - Signal Intelligence/Electronic Warfare
Subjective
Date of Service: December 01, 2024
Pt seen and examined. No complaints.
Objective
Labs:
12/01/24 05:57
12/01/24 05:57
Labs
Hgb 10.8 g/dL (12.0-16.0) L 12/01/24 05:57
Hct 34.5 % (37.0-47.0) L 12/01/24 05:57
Plt Count 123 10^3/uL (130-400) L 12/01/24 05:57
PT 15.3 Sec (11.4-14.6) H 11/30/24 01:25
INR 1.16 11/30/24 01:25
APTT 28.0 Sec (23.4-35.0) 11/30/24 01:25
Sodium 142 mmol/L (135-145) 12/01/24 05:57
Potassium 2.9 mmol/L (3.5-5.1) L 12/01/24 05:57
BUN 26 mg/dl (7-17) H 12/01/24 05:57
Creatinine 1.7 mg/dL (0.6-1.0) H 12/01/24 05:57
Glucose 107 mg/dl (70-99) H 12/01/24 05:57
Troponins
11/29/24 11/29/24 11/30/24
14:19 17:29 01:25
Troponin I 0.050 H* 0.044 H* 0.046 H*
Vital Signs and I&O:
Vital Signs
Temp Pulse Resp BP Pulse Ox
98 F 81 24 189/111 99
12/01/24 07:50 12/01/24 11:10 12/01/24 07:50 12/01/24 11:10 12/01/24 07:50
Vital Signs
Temp Pulse Resp BP Pulse Ox
98 F 81 24 189/111 99
12/01/24 07:50 12/01/24 11:10 12/01/24 07:50 12/01/24 11:10 12/01/24 07:50
Intake & Output
11/29/24 11/30/24 12/01/24 12/02/24
06:59 06:59 06:59 06:59
Intake Total 120 / 120 700 / 700
Output Total 1400 / 1400 425 / 425
Balance -1280 / -1280 275 / 275
Physical Exam
Physical Exam
General: No acute distress, lethargic
Neck: Negative JVD
Heart: Irregularly irregular, Negative S3 positive S1/S2, Negative S4, No murmur
Lungs: CTA b/l, negative wheezes/rales/rhonchi
Abd: Positive BS, NT/ND, neg rebound/rigidity/guarding
Ext: Negative cyanosis/clubbing/edema
Neuro: nonfocal
--- NOTE | 2024-12-01 12:29 | W.PN.NEPH.PH ---
Today's Communication / Plan
-
Continue IV diuretics with close monitoring of her weight with evidence of significant diastolic dysfunction and elevated pressure
Consider increasing diuretic dosing and/or adding thiazide diuretic if no improvement
Assessment/Plan
-
84F CAD ischemic Cardiomyopathy CHF ppm Hypothyroidism PAD CKD3 recent traumatic brain injury Cognitive Impairment/Dementia following Intracranial Hemorrhage from fall treated at [place] non-operatively a month ago presents from [facility]
living d/t concerns progressive SOB hypoxia requiring 4L lower ext swelling roughly 1 day duration. Presenting blood pressure>190/>100. Patient admitted to the ICU for blood pressure support
Renal consult for acute on chronic kidney disease with a creatinine of 1.8 at baseline 1.5-1.6
Impression:
Acute on chronic kidney disease stage IIIb with a baseline creatinine of 1.5-1.6 with admitting creatinine 1.8
CHF with pulmonary edema
Hypertensive urgency
Dementia/cognitive impairment status post intracranial hemorrhage
Plan:
out Patient on torsemide 20 mg /continue with IV diuretic
Daily weights
Sodium restriction
Hydralazine increased noted
Echo preserved EF with stage III diastolic dysfunction with significantly increased pressures
Blood pressure improved
ok with RYANN inhibitor
Continue IV diuretics 40 mg IV twice daily
Replete potassium
May need to increase diuretic dosing or add a thiazide diuretic if we do not see improvement in her weights as her GFR is 19 mL/min
-
-
Date of Service: December 01, 2024
CC / HPI / ROS
-
Chief Complaint:
Shortness of breath
History of Present Illness:
ALYSON on CKD with shortness of breath
Creatinine stable
Review of Systems:
No chest pain
Comfortable without shortness of breath
Labs
-
Labs:
WBC 3.7 10^3/uL (4.8-10.8) L 12/01/24 05:57
RBC 4.48 10^6/uL (4.20-5.40) 12/01/24 05:57
Hgb 10.8 g/dL (12.0-16.0) L 12/01/24 05:57
Hct 34.5 % (37.0-47.0) L 12/01/24 05:57
Plt Count 123 10^3/uL (130-400) L 12/01/24 05:57
Sodium 142 mmol/L (135-145) 12/01/24 05:57
Potassium 2.9 mmol/L (3.5-5.1) L 12/01/24 05:57
Chloride 104 mmol/L (98-107) 12/01/24 05:57
Carbon Dioxide 31 mmol/L (22-30) H 12/01/24 05:57
BUN 26 mg/dl (7-17) H 12/01/24 05:57
Creatinine 1.7 mg/dL (0.6-1.0) H 12/01/24 05:57
eGFR 29.76 12/01/24 05:57
Glucose 107 mg/dl (70-99) H 12/01/24 05:57
Calcium 9.2 mg/dl (8.4-10.2) 12/01/24 05:57
Phosphorus 3.1 mg/dl (2.5-4.5) 11/30/24 04:02
Ams-Z-Hmtymckcywy Pept > 84902 pg/ml 11/29/24 14:19
Albumin 3.9 g/dl (3.5-5.0) 11/29/24 14:19
Physical Exam
-
Vital Signs:
Vital Signs
Temp Pulse Resp BP Pulse Ox
98 F 81 24 189/111 99
12/01/24 07:50 12/01/24 11:10 12/01/24 07:50 12/01/24 11:10 12/01/24 07:50
Respiratory:: Bilateral: Coarse and Bilateral: Rales
Lung Excursion:: Normal
Abdomen:: Soft
Bowel Sounds:: Normal
Extremity Edema:: None: Bilateral:
Kimble Catheter: No
[2024-12-01] MEDS: LIPITOR 40 MG PO (20:43)
[2024-12-02] VITALS (8 sets, daily range): BP systolic 121–183; BP diastolic 65–99; PULSE 80; O2SAT 95; BMI 22.7; BMI 22.9
[2024-12-02] MEDS: SYNTHROID 50 MCG PO (06:26)
[2024-12-02 09:08] LABS: % Eosinophils 1.3 % (0-6); % Immature Granulocytes 0.6 % (0-0.5); % Lymphocytes 17.9 % (20.5-51.1); % Monocytes 17.3 % (1.7-9.3); % Neutrophils 61.9 % (42.2-75.2); Absolute Lymphocytes 0.6 10^3/uL (1.2-3.4); Absolute Monocytes 0.5 10^3/uL (0.1-0.6); Absolute Neutrophils 1.9 10^3/uL (1.4-6.5); Hematocrit 35.3 % (37.0-47.0); Mean Corp Hgb Conc. 31.2 g/dL (33.0-37.0); Mean Corpuscular Hgb 25.1 pg (27.0-31.0); Mean Corpuscular Volume 80.6 fL (81.0-99.0); Mean Platelet Volume 9.9 fL (7.4-10.4); Nucleated Red Blood Cells % 0 %; Platelet Count 129 10^3/uL (130-400); Red Blood Cell Count 4.38 10^6/uL (4.20-5.40); Red Cell Dist. Width 21.1 % (11.5-14.5); White Blood Cell Count 3.1 10^3/uL (4.8-10.8)
[2024-12-02 09:33] LABS: Blood Urea Nitrogen 29 mg/dl (7-17); Calcium 9.5 mg/dl (8.4-10.2); Carbon Dioxide 33 mmol/L (22-30); Chloride 103 mmol/L (98-107); Estimated Creatinine Clearance 16 ml/min; Glucose 95 mg/dl (70-99); Potassium 3.8 mmol/L (3.5-5.1); Sodium 141 mmol/L (135-145); eGFR 27.78
[2024-12-02] MEDS: APRESOLINE 25 MG PO (10:13)
[2024-12-02] MEDS: HEPARIN 5000 UNITS SC ×2 (10:14→17:21)
[2024-12-02] MEDS: COREG 12.5 MG PO ×2 (10:14→21:13)
[2024-12-02] MEDS: DESENEX/MITRAZOL/ZEASORB 1 APPLIC TOPICAL (10:14)
[2024-12-02] MEDS: FLUSH (NSS) 2 FLUSH IV (10:15)
[2024-12-02] MEDS: VIBRAMYCIN 100 MG PO ×2 (10:15→21:13)
[2024-12-02] MEDS: LASIX 40 MG IV ×2 (10:15→17:21)
--- NOTE | 2024-12-02 10:59 | W.PN.CARDCBS ---
Addendum entered and electronically signed by Chidi Latham MD 12/02/24 11:38:
I saw and examined the patient.
The [employer] or PA's note was reviewed and I agree with the note.
Comment: General: Well developed, well nourished in NAD.
Neck: Supple, no JVD, HJR, carotids +2 B/L, no bruits bilaterally.
Heart: Non displaced PMI, RRR, no murmurs, No S3, S4, no rubs.
Lungs: Scattered rhonchi
Extremities: No clubbing, cyanosis or edema bilaterally.
Neuro: Grossly nonfocal, awake, alert and oriented x3.
She remains on oxygen. Continue IV Lasix. Follow renal function closely. Creatinine increased slightly to 1.8. Creatinine was 1.6 on blood work in 2021 however. Increase hydralazine for hypertension. Follow-up with outpatient metal alloy scientist on
discharge.
Original Note:
Today's Communication / Plan
-
continue IV lasix
increase hydralazine
wean supp O2
Impression / Plan
-
.
PCP: ALEXA Blanchard at [place]
Primary Pheresis Specialist:[facility] in [facility], Dr Donovan.
Impression:
Hypertensive emergency, improved
Hypoxemia, improved
Acute on chronic combined systolic and diastolic heart failure
Nonischemic myocardial injury, peak 0.050
Chronic kidney disease
Coronary artery disease status post CABG
Recovered Ischemic cardiomyopathy, EF 50% by echo Oct 2024 outside facility
Hx PPM
Atrial fibrillation, not anticoagulated with falls
Intracranial hemorrhages status post falls 10/2024
History of hematuria
Previously on Xarelto-stopped due to hematuria several weeks prior to 08/2024 for fall per records from [place]
Liver mass detected on right upper quadrant ultrasound 10/2024 has had follow-up with GI
Previous cardiovascular testing:
Echo 10/04/2024: LVEF 50% (had been 20-25% in past), obtained from [place] admission note from 11/01/2024.
awaiting more records from last [place] admission
Records from [place]:
Patient was evaluated there by cardiology on 10/04/2024. Patient presented following a fall after she had gotten up in the middle of the night to use the bathroom. Unclear if she had syncope as she did not recall. Her pacemaker was interrogated
and showed underlying atrial fibrillation with no high rate episodes and normal device function. Fall/possible syncope not arrhythmogenic in origin. It was during this admission that she was found to have subarachnoid hemorrhage. She had been
previously started on Xarelto for a suspected apical LV thrombus on echo 03/2024. Xarelto had been discontinued 08/2024 for hematuria. Was advised to remain off Xarelto given subarachnoid hemorrhage. To consider aspirin 81 mg daily given extensive
vascular history if cleared by neurosurgery-unclear if she saw neurosurgery in followup.
pt follows with [facility] in [facility], Dr Donovan.
Has h/o carotid disease s/p R CEA 2019, CAD s/p CABG x 3 (CHRISTOPHER-LAD, SVG-RCA and D1 in 2018),apical LV thrombus on echo 03/2024-treated with Xarelto, discontinued 08/2024 for hematuria, paroxysmal afib, pacemaker for SSS, PAD s/p PVI.
Echo 04/20/2024: LVEF 15-20%, sev dilated LA, dilated and hypokinetic RV, mild , mod MR, mild-mod TR.
Pacemaker interrogation 10/04/2024: underlying afib, nl device fxn with no high ventricular rates
Based on above findings, no change in current care.
Continue BP mgmt with Coreg, Hydralazine- can be uptitrated if needed.
cont IV diuretics
She was previously on Spironolactone 12.5 mg daily -unclear when stopped. Given renal fxn, would hold for now.
afib appears to be permanent based on pacemaker interrogation at [place], not candidate for OAC given subarachnoid hemmorhage
Echo 11/30/2024: EF 65-70%, Stage 3 diastolic dysfxn, no thrombus noted
Plan:
-she is diuresing with IV lasix 40mg BID. unclear if weights are accurate as with big drop overnight. was on torsemide 20mg daily prior to admission
-wean supp O2 as able
-Cr relatively stable at 1.8 on 12/02. by records, Cr was 1.65 10/07/24.
-echo with EF 65-70% 11/30/24 as above
-trop peaked at 0.05, suspected nonischemic myocardial injury
-noted to be in vpaced rhythm on review of tele overnight. continue coreg.
-Not a candidate for anticoagulation in setting of h/o afib given falls and multiple subarachnoid hemorrhages in recent past.
-BPs remain elevated. not felt to be ideal candidate for desean/arb/aldactone given baseline RI. will increase hydralazine further to 50mg Q8H and follow.
PREADMIT DATA:
HPI: 84-year-old female with history of coronary artery disease s/p CABG x 3, ischemic cardiomyopathy, chronic combined systolic/diastolic heart failure, permanent pacemaker, atrial fibrillation, chronic kidney disease stage III, PAD,
hypothyroidism, recent traumatic brain injury, cognitive impairment/dementia following intracranial hemorrhage from fall treated at [place] nonoperatively 1 month ago. She presented to [facility] from [facility] 11/29/2024 due to
concerns of progressive shortness of breath, hypoxia, lower extremity edema. Blood pressure elevated, as high as 206/104 and pt hypoxic on exam. Troponin mildly elevated, BNP greater than 27,000. Cardiology consulted for management of
hypertensive emergency, heart failure, history of pacemaker.
-Obtained some records from admission to [place] from 11/01/2024: Echo 10/04/2024: LVEF 50% (had been 20-25% in past). Per records pt had previous fall and was at [facility] ICU with multiple traumatic brain bleeds. She then presented to
[place] 10/04/2024 with syncope and fall and found to have sustained intra parenchymal and subarachnoid hemorrhages in the bilateral frontal lobe and subarachnoid hemorrhage in the bilateral temporal lobe. Started on Keppra. Seen by neurosurgery.
Hemorrhage stable on repeat CT. Had cardiac workup that was unremarkable including pacemaker interrogation. Patient has history of being on Xarelto but it was stopped a few weeks prior to her fall due to hematuria. While in [place] found to
have liver mass and had subsequent follow-up with GI. Echo on admission to [place] on 10/04/2024 showed EF of 50%, improved from previous when EF was 20 to 25%. Heart failure regimen included torsemide 20 mg daily, beta-joseline, hydralazine, and
potassium. Has noted history of paroxysmal A-fib that was rate controlled with carvedilol. Not on oral anticoagulation due to risk of fall. There was consideration for starting aspirin if approved by neurosurgery.
Progress Note - Pheresis Specialist
Subjective
Date of Service: December 02, 2024
denies CP.
Objective
Labs:
12/02/24 07:59
12/02/24 07:59
Labs
Hgb 11.0 g/dL (12.0-16.0) L 12/02/24 07:59
Hct 35.3 % (37.0-47.0) L 12/02/24 07:59
Plt Count 129 10^3/uL (130-400) L 12/02/24 07:59
PT 15.3 Sec (11.4-14.6) H 11/30/24 01:25
INR 1.16 11/30/24 01:25
APTT 28.0 Sec (23.4-35.0) 11/30/24 01:25
Sodium 141 mmol/L (135-145) 12/02/24 07:59
Potassium 3.8 mmol/L (3.5-5.1) D 12/02/24 07:59
BUN 29 mg/dl (7-17) H 12/02/24 07:59
Creatinine 1.8 mg/dL (0.6-1.0) H 12/02/24 07:59
Glucose 95 mg/dl (70-99) 12/02/24 07:59
Troponins
11/29/24 11/29/24 11/30/24
14:19 17:29 01:25
Troponin I 0.050 H* 0.044 H* 0.046 H*
Vital Signs and I&O:
Vital Signs
Temp Pulse Resp BP Pulse Ox
97.8 F 82 20 154/85 99
12/02/24 07:55 12/02/24 10:13 12/02/24 07:55 12/02/24 10:13 12/02/24 07:55
Vital Signs
Temp Pulse Resp BP Pulse Ox
97.8 F 82 20 154/85 99
12/02/24 07:55 12/02/24 10:13 12/02/24 07:55 12/02/24 10:13 12/02/24 07:55
Intake & Output
11/30/24 12/01/24 12/02/24 12/03/24
07:59 07:59 07:59 07:59
Intake Total 120 / 120 700 / 700 515 / 515 180 / 180
Output Total 1400 / 1400 425 / 425
Balance -1280 / -1280 275 / 275 515 / 515 180 / 180
Physical Exam
Physical Exam
GEN: No distress, awake, alert. flat affect. on supp O2
HEENT: supple, anicteric, mmm, eomi
LUNGS: CTA B/L anterolaterally, no wheezes
CV: Irreg, S1/S2, no murmur
ABD: soft, BS+, NT/ND
EXT: No cyanosis, clubbing. trace edema of B/L LE
NEURO: Gross non-focal
SKIN: Warm, pink, dry. No rash. Bandages to B/L ankles.
--- NOTE | 2024-12-02 11:37 | W.PN.NEPH.PH ---
Today's Communication / Plan
-
renal duplex
Assessment/Plan
-
84F CAD ischemic Cardiomyopathy CHF ppm Hypothyroidism PAD CKD3 recent traumatic brain injury Cognitive Impairment/Dementia following Intracranial Hemorrhage from fall treated at [facility] non-operatively a month ago presents from [facility]
living d/t concerns progressive SOB hypoxia requiring 4L lower ext swelling roughly 1 day duration. Presenting blood pressure>190/>100. Patient admitted to the ICU for blood pressure support
Renal consult for acute on chronic kidney disease with a creatinine of 1.8 at baseline 1.5-1.6
Impression:
Acute on chronic kidney disease stage IIIb with a baseline creatinine of 1.5-1.6 with admitting creatinine 1.8
CHF with pulmonary edema
Hypertensive urgency
Dementia/cognitive impairment status post intracranial hemorrhage
Plan:
continue IV lasix
follow BMP
check renal duplex
-
-
Date of Service: December 02, 2024
CC / HPI / ROS
-
Chief Complaint:
Shortness of breath
History of Present Illness:
ALYSON/Cr up to 1.8
diuresing with IV lasix for decompensated DHF
BP stable high
Review of Systems:
No chest pain
Comfortable without shortness of breath
Labs
-
Labs:
WBC 3.1 10^3/uL (4.8-10.8) L 12/02/24 07:59
RBC 4.38 10^6/uL (4.20-5.40) 12/02/24 07:59
Hgb 11.0 g/dL (12.0-16.0) L 12/02/24 07:59
Hct 35.3 % (37.0-47.0) L 12/02/24 07:59
Plt Count 129 10^3/uL (130-400) L 12/02/24 07:59
Sodium 141 mmol/L (135-145) 12/02/24 07:59
Potassium 3.8 mmol/L (3.5-5.1) D 12/02/24 07:59
Chloride 103 mmol/L (98-107) 12/02/24 07:59
Carbon Dioxide 33 mmol/L (22-30) H 12/02/24 07:59
BUN 29 mg/dl (7-17) H 12/02/24 07:59
Creatinine 1.8 mg/dL (0.6-1.0) H 12/02/24 07:59
eGFR 27.78 12/02/24 07:59
Glucose 95 mg/dl (70-99) 12/02/24 07:59
Calcium 9.5 mg/dl (8.4-10.2) 12/02/24 07:59
Phosphorus 3.1 mg/dl (2.5-4.5) 11/30/24 04:02
Shy-A-Pfhseyahtks Pept > 92871 pg/ml 11/29/24 14:19
Albumin 3.9 g/dl (3.5-5.0) 11/29/24 14:19
Physical Exam
-
Vital Signs:
Vital Signs
Temp Pulse Resp BP Pulse Ox
97.8 F 82 20 154/85 99
12/02/24 07:55 12/02/24 10:13 12/02/24 07:55 12/02/24 10:13 12/02/24 07:55
Cardiovascular:: Regular rate and rhythm
Respiratory:: Bilateral: Coarse
Lung Excursion:: Normal
Abdomen:: Nontender and Soft
Bowel Sounds:: Normal
Extremity Edema:: None: Bilateral:
--- NOTE | 2024-12-02 13:47 | CM ---
Addendum entered by Sulema Keller 12/03/24 14:07:
CM has been speaking w/ son and POA, Dorian, and other son, Jimmie, at length throughout the day regarding facility's requirement of hospice for pt in order to return. Sons are not agreeable at this time to hospice and expressed frustration
regarding this considering the hospitalist has not deemed pt appropriate for hospice.
CM spoke w/ nurse forest nursery supervisor, Emerald from [facility] to discuss pt returning to facility at d/c. Per Emerald, she reiterated that pt is unable to return unless signed onto hospice. Emerald stated she shared some hospice agencies and nursing
facilities w/ Dorian and awaiting decision.
Son, Jimmie, has plans to visit [facility] to further discuss d/c plan and hospice determination.
At this time family is not considering hospice
Original Note:
CM discussed d/c plan w/ nurseValencia. Per Valencia, spoke w/ nurse at [facility] regarding pt's return at d/c. Valencia stated facility is unable to take pt back unless she signs onto hospice services.
Spoke w/ pt son at bedside. Pt's son stated that his brother is pt's COURT. Pt permitted CM to speak w/ son.
Per son, pt is doing better than she was yesterday. CM inquired of discussions surrounding hospice w/ doctor. Pt's son denied any conversations planning or considering hospice. Son stated [facility] is suggesting hospice for pt but pt is not
appropriate for this.
CM spoke w/ Emerald, nurse at [facility]- ([phone]). Per Emerald, pt is complicated and has wounds (blisters) on her legs that needs wound care. Emerald stated she is the only nurse there and only works 8 hours, she stated none of the techs are
trained to perform wound care and pt would not be aided in this if she needs wound care for any type of skin tear in the middle of the night, for example. Confirmed that pt would not be able to admit back without hospice services as nursing is not
24 hour for her care.
CM spoke w/ hospitalist, per Dr. Baron, pt is not appropriate for hospice at this time and should return to facility once medically stable
CM provided Emerald's phone number to pt's son and encouraged to give her call w/ his brother to further discuss pt returning.
Plan: Return to facility as pt is not hospice appropriate
--- NOTE | 2024-12-02 14:37 | W.PN.HOSP.TC ---
Today's Communication/Plan
-
Consider adding Aldactone for better blood pressure management and it helps with heart failure to
Continue IV Lasix
Discharge planning
Assessment / Plan
Assessment / Plan
84-year-old female with coronary disease presented from [facility] with shortness of breath and lower extremity edema. Patient was also confused. Her pressure was elevated in the ER. When I ask her any questions her answer is 'I do
not know'.
Awake and alert but confused
Cardiovascular system S1-S2 appreciated, systolic murmur at apex
Chest bilateral rales
Abdomen soft and nontender
Bilateral lower extremity edema better
Skin discoloration just above the ankle posteriorly on the left, skin tear on the right chest over the ankle
Chest x-ray reviewed by me-by bilateral pulmonary edema and effusion
Echo 11/30/2024-moderate concentric LVH, normal regional wall motion, EF 65 to 70%, stage III diastolic dysfunction. No thrombus. Mild MR, severely dilated LA, mild TR, pulmonary artery pressure 48 mmHg, moderately dilated RA, normal RV size and
systolic function
# Acute heart failure-acute on chronic HFrEF
proBNP more than 27,000
Echo 04/20/2024-EF 15 to 20%, now improved as above
Continue Lasix 40 mg IV twice daily-takes torsemide 20 mg daily at home
Daily weights intake output charting
Continue Coreg
Need to consider starting SGLT2 inhibitors this admission
Unclear why she is not on spironolactone-possibly secondary to renal function
RYANN inhibitor/Arni/ARB-hold now secondary to diuresis. Once creatinine stabilizes after adequate diuresis consider adding.
Cardiology following
# URI symptoms with productive cough-add doxycycline. Check sputum cultures if possible
# Acute hypoxic respiratory insufficiency secondary to below
# Hypokalemia-replaced IV and p.o.
# Hypertensive emergency with pulmonary edema
Did not require Cardene drip per discussion with nursing
Increase p.o. hydralazine to 50 every 8 hours. Continue as needed IV hydralazine, continue Coreg
Discussed with nephrology regarding possibly adding Aldactone
# History of coronary artery disease-history of stents-CABG [address] Donovan with [facility], [facility]
# Paroxysmal atrial fibrillation-not on anticoagulation as outpatient. Was started on Xarelto and discontinued August 2024. Now on Coreg
# History of pacemaker placement for sick sinus syndrome
# Elevated troponin-likely nonischemic myocardial injury
# History of LV thrombus on echo March 2024 Xarelto was started and was discontinued
# CKD stage III-unclear if has ALYSON
# Hyperlipidemia-continue statin
# Hyperglycemia-Hemoglobin A1c 5.8
# Hypothyroidism-continue Synthroid
# Mild thrombocytopenia-follow
# History of intracranial hemorrhage in 2021 and was transferred to [facility]
# History of right CEA 2019
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
# Cognitive impairment/Dementia
# Ambulatory geyeibhfvfa-leawjygthm-mcspi now
# DVT prophylaxis-subcutaneous heparin
# DNR
Discussed with nursing at bedside
Spoke to son and updated at bedside.
Anticipated Discharge: Within 24 hours
Subjective/Interval History
-
Date of Service: December 02, 2024
Objective Data
-
Labs:
Laboratory Results
12/02/24
07:59
WBC 3.1 L
Hgb 11.0 L
Hct 35.3 L
Plt Count 129 L
Sodium 141
Potassium 3.8 D
Chloride 103
Carbon Dioxide 33 H
BUN 29 H
Creatinine 1.8 H
Glucose 95
Calcium 9.5
Vital Signs:
Vital Signs
Temp Pulse Resp BP Pulse Ox
97.4 F 82 22 175/92 97
12/02/24 11:54 12/02/24 11:54 12/02/24 11:54 12/02/24 11:54 12/02/24 12:08
I&O
12/01/24 12/02/24 12/03/24
06:59 06:59 06:59
Intake Total 700 / 700 515 / 515 300 / 300
Output Total 425 / 425
Balance 275 / 275 515 / 515 300 / 300
[2024-12-02] MEDS: APRESOLINE PO (17:20)
[2024-12-02] MEDS: LIPITOR 40 MG PO (21:14)
[2024-12-02] MEDS: PEPCID 20 MG PO (21:14)
[2024-12-03] VITALS (7 sets, daily range): BP systolic 110–167; BP diastolic 66–95; PULSE 81; BMI 22.0
[2024-12-03] MEDS: APRESOLINE 50 MG PO ×2 (00:36→10:54)
[2024-12-03] MEDS: HEPARIN 5000 UNITS SC ×3 (00:36→16:18)
[2024-12-03] MEDS: DESENEX/MITRAZOL/ZEASORB 1 APPLIC TOPICAL ×3 (00:44→20:40)
[2024-12-03] MEDS: SYNTHROID 50 MCG PO (05:34)
[2024-12-03] MEDS: COREG 12.5 MG PO ×2 (10:54→20:40)
[2024-12-03] MEDS: LASIX 40 MG IV ×2 (10:55→16:21)
[2024-12-03] MEDS: VIBRAMYCIN 100 MG PO ×2 (10:55→20:40)
[2024-12-03] MEDS: FLUSH (NSS) 1 FLUSH IV ×2 (10:56→16:21)
--- NOTE | 2024-12-03 11:15 | W.PN.CARDCBS ---
Addendum entered and electronically signed by Chidi Latham MD 12/03/24 11:39:
I saw and examined the patient.
The CABINET MOUNTER or PA's note was reviewed and I agree with the note.
Comment: General: Well developed, well nourished in NAD.
Neck: Supple, no JVD, HJR, carotids +2 B/L, no bruits bilaterally.
Heart: Non displaced PMI, RRR, no murmurs, No S3, S4, no rubs.
Lungs: scattered rhonchi
Extremities: No clubbing, cyanosis or edema bilaterally.
Neuro: Grossly nonfocal, awake, alert and oriented x3.
Remains on oxygen. Continue IV Lasix. Consider change to oral Lasix in the next 24 to 48 hours.
Original Note:
Today's Communication / Plan
-
Continue diuresis, anticipate transition to p.o. in next 24 to 48 hours
Continue attempts at blood pressure control�would consider up titration of Coreg or hydralazine versus addition of Aldactone if okay with nephrology
Awaiting results of renal artery duplex
Impression / Plan
-
.
PCP: ALEXA Blanchard at [facility]
Primary Installment Account Checker:[facility] in [facility], Dr Donovan.
Impression:
Hypertensive emergency, improved
Hypoxemia, improved
Acute on chronic combined systolic and diastolic heart failure
Nonischemic myocardial injury, peak 0.050
Chronic kidney disease
Coronary artery disease status post CABG
Recovered Ischemic cardiomyopathy, EF 50% by echo Oct 2024 outside facility
Hx PPM
Atrial fibrillation, not anticoagulated with falls
Intracranial hemorrhages status post falls 10/2024
History of hematuria
Previously on Xarelto-stopped due to hematuria several weeks prior to 08/2024 for fall per records from [facility]
Liver mass detected on right upper quadrant ultrasound 10/2024 has had follow-up with GI
Previous cardiovascular testing:
Echo 10/04/2024: LVEF 50% (had been 20-25% in past), obtained from [facility] admission note from 11/01/2024.
awaiting more records from last [facility] admission
Records from [facility]:
Patient was evaluated there by cardiology on 10/04/2024. Patient presented following a fall after she had gotten up in the middle of the night to use the bathroom. Unclear if she had syncope as she did not recall. Her pacemaker was interrogated
and showed underlying atrial fibrillation with no high rate episodes and normal device function. Fall/possible syncope not arrhythmogenic in origin. It was during this admission that she was found to have subarachnoid hemorrhage. She had been
previously started on Xarelto for a suspected apical LV thrombus on echo 03/2024. Xarelto had been discontinued 08/2024 for hematuria. Was advised to remain off Xarelto given subarachnoid hemorrhage. To consider aspirin 81 mg daily given extensive
vascular history if cleared by neurosurgery-unclear if she saw neurosurgery in followup.
pt follows with [facility] in [facility], Dr Donovan.
Has h/o carotid disease s/p R CEA 2019, CAD s/p CABG x 3 (CHRISTOPHER-LAD, SVG-RCA and D1 in 2017),apical LV thrombus on echo 03/2024-treated with Xarelto, discontinued 08/2024 for hematuria, paroxysmal afib, pacemaker for SSS, PAD s/p PVI.
Echo 04/20/2024: LVEF 15-20%, sev dilated LA, dilated and hypokinetic RV, mild , mod MR, mild-mod TR.
Pacemaker interrogation 10/04/2024: underlying afib, nl device fxn with no high ventricular rates
Based on above findings, no change in current care.
Continue BP mgmt with Coreg, Hydralazine- can be uptitrated if needed.
cont IV diuretics
She was previously on Spironolactone 12.5 mg daily -unclear when stopped. Given renal fxn, would hold for now.
afib appears to be permanent based on pacemaker interrogation at [facility], not candidate for OAC given subarachnoid hemmorhage
Echo 11/30/2024: EF 65-70%, Stage 3 diastolic dysfxn, no thrombus noted
Plan:
-She continues to diurese with IV Lasix 40 mg twice daily. Now off supplemental oxygen. Weight continues to trend down. Chest x-ray from 12/02 with improvement in pleural effusion. Awaiting a.m. labs. Was on torsemide 20 mg prior to admission
-Echo 11/30/2024 with preserved EF as above
-Continue attempts at blood pressure control. Would consider increasing Coreg or hydralazine versus addition of Aldactone if okay from nephrology standpoint
-Renal artery ultrasound pending
-V paced rhythm on review of telemetry
-Not a candidate for anticoagulation in setting of h/o afib given falls and multiple subarachnoid hemorrhages in recent past.
-trop peaked at 0.05, suspected nonischemic myocardial injury
-Discussed with patient and son at bedside.
PREADMIT DATA:
HPI: 84-year-old female with history of coronary artery disease s/p CABG x 3, ischemic cardiomyopathy, chronic combined systolic/diastolic heart failure, permanent pacemaker, atrial fibrillation, chronic kidney disease stage III, PAD,
hypothyroidism, recent traumatic brain injury, cognitive impairment/dementia following intracranial hemorrhage from fall treated at [facility] nonoperatively 1 month ago. She presented to [facility] from [facility] 11/29/2024 due to
concerns of progressive shortness of breath, hypoxia, lower extremity edema. Blood pressure elevated, as high as 206/104 and pt hypoxic on exam. Troponin mildly elevated, BNP greater than 27,000. Cardiology consulted for management of
hypertensive emergency, heart failure, history of pacemaker.
-Obtained some records from admission to [facility] from 11/01/2024: Echo 10/04/2024: LVEF 50% (had been 20-25% in past). Per records pt had previous fall and was at [facility] ICU with multiple traumatic brain bleeds. She then presented to
[facility] 10/04/2024 with syncope and fall and found to have sustained intra parenchymal and subarachnoid hemorrhages in the bilateral frontal lobe and subarachnoid hemorrhage in the bilateral temporal lobe. Started on Keppra. Seen by neurosurgery.
Hemorrhage stable on repeat CT. Had cardiac workup that was unremarkable including pacemaker interrogation. Patient has history of being on Xarelto but it was stopped a few weeks prior to her fall due to hematuria. While in [facility] found to
have liver mass and had subsequent follow-up with GI. Echo on admission to [facility] on 10/04/2024 showed EF of 50%, improved from previous when EF was 20 to 25%. Heart failure regimen included torsemide 20 mg daily, beta-joseline, hydralazine, and
potassium. Has noted history of paroxysmal A-fib that was rate controlled with carvedilol. Not on oral anticoagulation due to risk of fall. There was consideration for starting aspirin if approved by neurosurgery.
Progress Note - Installment Account Checker
Subjective
Date of Service: December 03, 2024
Reports feeling 'good'.
Objective
Labs:
Labs
Hgb 11.0 g/dL (12.0-16.0) L 12/02/24 07:59
Hct 35.3 % (37.0-47.0) L 12/02/24 07:59
Plt Count 129 10^3/uL (130-400) L 12/02/24 07:59
PT 15.3 Sec (11.4-14.6) H 11/30/24 01:25
INR 1.16 11/30/24 01:25
APTT 28.0 Sec (23.4-35.0) 11/30/24 01:25
Sodium 141 mmol/L (135-145) 12/02/24 07:59
Potassium 3.8 mmol/L (3.5-5.1) D 12/02/24 07:59
BUN 29 mg/dl (7-17) H 12/02/24 07:59
Creatinine 1.8 mg/dL (0.6-1.0) H 12/02/24 07:59
Glucose 95 mg/dl (70-99) 12/02/24 07:59
Vital Signs and I&O:
Vital Signs
Temp Pulse Resp BP Pulse Ox
98.1 F 85 16 167/95 97
12/03/24 07:55 12/03/24 10:55 12/03/24 07:55 12/03/24 10:55 12/03/24 10:04
Vital Signs
Temp Pulse Resp BP Pulse Ox
98.1 F 85 16 167/95 97
12/03/24 07:55 12/03/24 10:55 12/03/24 07:55 12/03/24 10:55 12/03/24 10:04
Intake & Output
12/01/24 12/02/24 12/03/24 12/04/24
07:59 07:59 07:59 07:59
Intake Total 700 / 700 515 / 515 420 / 420
Output Total 425 / 425
Balance 275 / 275 515 / 515 420 / 420
Physical Exam
Physical Exam
GEN: No distress, awake, alert. flat affect.
HEENT: supple, anicteric, mmm, eomi
LUNGS: Few crackles at bases, no wheezes
CV: Irreg, S1/S2, no murmur
ABD: soft, BS+, NT/ND
EXT: No cyanosis, clubbing, edema
NEURO: Gross non-focal
SKIN: Warm, pink, dry. No rash. Bandages to B/L ankles.
--- NOTE | 2024-12-03 13:15 | W.PN.NEPH.PH ---
Today's Communication / Plan
-
follow labs today
Assessment/Plan
-
84F CAD ischemic Cardiomyopathy CHF ppm Hypothyroidism PAD CKD3 recent traumatic brain injury Cognitive Impairment/Dementia following Intracranial Hemorrhage from fall treated at [facility] non-operatively a month ago presents from [facility]
living d/t concerns progressive SOB hypoxia requiring 4L lower ext swelling roughly 1 day duration. Presenting blood pressure>190/>100. Patient admitted to the ICU for blood pressure support
Renal consult for acute on chronic kidney disease with a creatinine of 1.8 at baseline 1.5-1.6
Impression:
Acute on chronic kidney disease stage IIIb with a baseline creatinine of 1.5-1.6 with admitting creatinine 1.8
CHF with pulmonary edema
Hypertensive urgency
Dementia/cognitive impairment status post intracranial hemorrhage
Plan:
no new labs today
continue IV lasix, wt decreasing
follow BMP
neg for HERBERT on renal duplex
-
-
Date of Service: December 03, 2024
CC / HPI / ROS
-
Chief Complaint:
Shortness of breath
History of Present Illness:
ALYSON/Cr up to 1.8, no labs today
diuresing with IV lasix for decompensated DHF
BP stable
Review of Systems:
No chest pain
Comfortable without shortness of breath
Labs
-
Labs:
eGFR 27.78 12/02/24 07:59
Phosphorus 3.1 mg/dl (2.5-4.5) 11/30/24 04:02
Ekt-D-Gvhbrxlerum Pept > 89269 pg/ml 11/29/24 14:19
Albumin 3.9 g/dl (3.5-5.0) 11/29/24 14:19
Physical Exam
-
Vital Signs:
Vital Signs
Temp Pulse Resp BP Pulse Ox
97.6 F 82 16 110/67 96
12/03/24 11:58 12/03/24 11:58 12/03/24 11:58 12/03/24 11:58 12/03/24 11:58
Cardiovascular:: Regular rate and rhythm
Respiratory:: Bilateral: CTA (decreased)
Lung Excursion:: Normal
Abdomen:: Nontender and Soft
Extremity Edema:: None: Bilateral:
Kimble Catheter: No
--- NOTE | 2024-12-03 14:30 | CM ---
TC to Mervat, learning and development director for [facility]. p# [phone]
Per discussion with Mervat, Mervat, their medical staff and their director life insurance discussed patients return and care needs and determined hospice would be appropriate for patient. Per Mervat the Home Insurance Agent at the facility would order hospice.
TAMMY explained that Hospice has not been indicated by the MD here for this hospitalization and Mervat is aware that hospice not been recommended here at this time.
Per Mervat she spoke with patients son Ady, as son Rosa (David) the POA was not available and he would be relaying information to his brother Rosa and they would then make a decision on hospice. Mervat should have an answer this evening or
tomorrow.
CM explained if the facility is deciding on hospice and discusses with family, transition to hospice will need to take place on return to the [facility] and will not take place here.
Per Mervat, their facility, [facility], does not accept weekend transfers back to the facility.
CM will reach out to Mervat on Friday for next steps. If patient is for hospice at the facility, it will be initiated upon return. If family does not agree CM will need to discuss return to [facility] vs alternate plan.
[2024-12-03 14:46] LABS: Blood Urea Nitrogen 35 mg/dl (7-17); Calcium 9.5 mg/dl (8.4-10.2); Carbon Dioxide 32 mmol/L (22-30); Chloride 98 mmol/L (98-107); Estimated Creatinine Clearance 16 ml/min; Glucose 229 mg/dl (70-99); Potassium 3.8 mmol/L (3.5-5.1); Sodium 138 mmol/L (135-145); eGFR 29.76
--- NOTE | 2024-12-03 15:21 | W.PN.HOSP.TC ---
Today's Communication/Plan
-
Unfortunately her assisted living will not accept patient back on the weekend therefore she may have to stay until Friday.
Continue diuresis
Assessment / Plan
Assessment / Plan
84-year-old female with coronary disease presented from [facility] living with shortness of breath and lower extremity edema. Patient was also confused. Her pressure was elevated in the ER. When I ask her any questions her answer is 'I do
not know'.
Awake and alert but confused
Cardiovascular system S1-S2 appreciated, systolic murmur at apex
Chest CTA
Abdomen soft and nontender
Bilateral lower extremity edema better
Skin discoloration just above the ankle posteriorly on the left, skin tear on the right chest over the ankle
Chest x-ray reviewed by me-by bilateral pulmonary edema and effusion
Echo 11/30/2024-moderate concentric LVH, normal regional wall motion, EF 65 to 70%, stage III diastolic dysfunction. No thrombus. Mild MR, severely dilated LA, mild TR, pulmonary artery pressure 48 mmHg, moderately dilated RA, normal RV size and
systolic function
Renal artery duplex 12/03/2024- No sonographic evidence of significant renal arterial stenosis on either side.
# Acute heart failure-acute on chronic HFrEF
proBNP more than 27,000
Echo 04/20/2024-EF 15 to 20%, now improved as above
Continue Lasix 40 mg IV twice daily-takes torsemide 20 mg daily at home
Daily weights intake output charting
Continue Coreg
Need to consider starting SGLT2 inhibitors this admission
Unclear why she is not on spironolactone-possibly secondary to renal function
RYNAN inhibitor/Arni/ARB-hold now secondary to diuresis. Once creatinine stabilizes after adequate diuresis consider adding.
Cardiology following
# URI symptoms with productive cough-added doxycycline.
# Acute hypoxic respiratory insufficiency secondary to above
# Hypokalemia-replaced IV and p.o.
# Hypertensive emergency with pulmonary edema
Did not require Cardene drip per discussion with nursing
Increase p.o. hydralazine to 50 every 8 hours. Continue as needed IV hydralazine, continue Coreg
Blood pressure better with hydralazine
Renal duplex without any abnormality
# History of coronary artery disease-history of stents-CABG [address] Donovan with [facility], [facility]
# Paroxysmal atrial fibrillation-not on anticoagulation as outpatient. Was started on Xarelto and discontinued August 2024. Now on Coreg
# History of pacemaker placement for sick sinus syndrome
# Elevated troponin-likely nonischemic myocardial injury
# History of LV thrombus on echo March 2024 Xarelto was started and was discontinued
# CKD stage III-unclear if has ALYSON
# Hyperlipidemia-continue statin
# Hyperglycemia-Hemoglobin A1c 5.8
# Hypothyroidism-continue Synthroid
# Mild thrombocytopenia-follow
# History of intracranial hemorrhage in 2021 and was transferred to [facility]
# History of right CEA 2019
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
# Cognitive impairment/Dementia
# Ambulatory lmxdcieijoo-nlwvxngwve-shhpn now
# DVT prophylaxis-subcutaneous heparin
# DNR
Discussed with nursing
Spoke to son and updated at bedside.
Anticipated Discharge: > 48 hours
Subjective/Interval History
-
Date of Service: December 03, 2024
Objective Data
-
Labs:
Laboratory Results
12/03/24
14:17
WBC Pending
Hgb Pending
Hct Pending
Plt Count Pending
Sodium 138
Potassium 3.8
Chloride 98
Carbon Dioxide 32 H
BUN 35 H
Creatinine 1.7 H
Glucose 229 H
Calcium 9.5
Vital Signs:
Vital Signs
Temp Pulse Resp BP Pulse Ox
97.6 F 82 16 110/67 96
12/03/24 11:58 12/03/24 11:58 12/03/24 11:58 12/03/24 11:58 12/03/24 11:58
I&O
12/02/24 12/03/24 12/04/24
06:59 06:59 06:59
Intake Total 515 / 515 420 / 420
Balance 515 / 515 420 / 420
--- NOTE | 2024-12-03 16:15 | PTCARENOTE ---
Pt awake and alert, oriented to self/year/birthdate; forgetful; occ confused conversatoin. REAGAN; weak; OOB to chair with assistance,tyrone well. VSS. Telemetry- V-paced rhythm. On room air- pulse ox 95%, no SOB noted. Abd soft, rounded, tyrone :PO
well. Incont large amts urine. resting comfortably at present. Will continue to monitor.
[2024-12-03] MEDS: APRESOLINE PO (16:21)
[2024-12-03 16:59] LABS: % Basophils 0.9 % (0-2); % Eosinophils 0.7 % (0-6); % Immature Granulocytes 0.2 % (0-0.5); % Lymphocytes 18.6 % (20.5-51.1); % Neutrophils 71.6 % (42.2-75.2); Absolute Lymphocytes 0.8 10^3/uL (1.2-3.4); Absolute Monocytes 0.4 10^3/uL (0.1-0.6); Absolute Neutrophils 3.1 10^3/uL (1.4-6.5); Hematocrit 58.5 % (37.0-47.0); Hemoglobin 18.2 g/dL (12.0-16.0); Mean Corp Hgb Conc. 31.1 g/dL (33.0-37.0); Mean Corpuscular Hgb 24.2 pg (27.0-31.0); Mean Corpuscular Volume 77.9 fL (81.0-99.0); Nucleated Red Blood Cells % 0 %; Platelet Count 265 10^3/uL (130-400); Red Blood Cell Count 7.51 10^6/uL (4.20-5.40); Red Cell Dist. Width 22.1 % (11.5-14.5); White Blood Cell Count 4.4 10^3/uL (4.8-10.8)
[2024-12-03] MEDS: LIPITOR 40 MG PO (20:40)
[2024-12-04] MEDS: APRESOLINE PO (01:09)
[2024-12-04 03:55] VITALS: BP 152/92
[2024-12-04] MEDS: HEPARIN SC (04:27)
[2024-12-04 06:00] VITALS: BMI 22.1
[2024-12-04] MEDS: SYNTHROID 50 MCG PO (06:20)
[2024-12-04 07:55] VITALS: BP 159/84
[2024-12-04] MEDS: VIBRAMYCIN 100 MG PO ×2 (09:01→20:14)
[2024-12-04] MEDS: APRESOLINE 50 MG PO ×2 (09:01→16:58)
[2024-12-04] MEDS: HEPARIN 5000 UNITS SC ×2 (09:02→16:58)
[2024-12-04] MEDS: LASIX 40 MG IV (09:02)
[2024-12-04] MEDS: COREG 12.5 MG PO ×2 (09:02→20:14)
[2024-12-04] MEDS: DESENEX/MITRAZOL/ZEASORB 1 APPLIC TOPICAL ×2 (09:07→20:14)
[2024-12-04 09:25] LABS: % Basophils 0.7 % (0-2); % Immature Granulocytes 0.3 % (0-0.5); Absolute Eosinophils 0.1 10^3/uL (0-0.7); Absolute Lymphocytes 0.8 10^3/uL (1.2-3.4); Absolute Monocytes 0.4 10^3/uL (0.1-0.6); Absolute Neutrophils 1.6 10^3/uL (1.4-6.5); Hematocrit 38.4 % (37.0-47.0); Hemoglobin 12.1 g/dL (12.0-16.0); Mean Corp Hgb Conc. 31.5 g/dL (33.0-37.0); Mean Corpuscular Hgb 24.3 pg (27.0-31.0); Mean Corpuscular Volume 77.3 fL (81.0-99.0); Mean Platelet Volume 9.5 fL (7.4-10.4); Nucleated Red Blood Cells % 0 %; Platelet Count 160 10^3/uL (130-400); Red Blood Cell Count 4.97 10^6/uL (4.20-5.40); White Blood Cell Count 2.9 10^3/uL (4.8-10.8)
[2024-12-04 09:31] LABS: Blood Urea Nitrogen 39 mg/dl (7-17); Calcium 9.5 mg/dl (8.4-10.2); Carbon Dioxide 32 mmol/L (22-30); Chloride 99 mmol/L (98-107); Estimated Creatinine Clearance 16 ml/min; Glucose 92 mg/dl (70-99); Potassium 3.7 mmol/L (3.5-5.1); Sodium 138 mmol/L (135-145); eGFR 29.76
--- NOTE | 2024-12-04 11:50 | W.PN.CARDCBS ---
Addendum entered and electronically signed by Chidi Latham MD 12/04/24 13:04:
I saw and examined the patient.
The EDUCATIONAL INSTITUTION PRESIDENT or PA's note was reviewed and I agree with the note.
Comment: General: Well developed, well nourished in NAD.
Neck: Supple, no JVD, HJR, carotids +2 B/L, no bruits bilaterally.
Heart: Non displaced PMI, RRR, no murmurs, No S3, S4, no rubs.
Lungs: Scattered rhonchi
Extremities: No clubbing, cyanosis or edema bilaterally.
Neuro: Grossly nonfocal, awake, alert and oriented x3.
Now on room air. Changed to p.o. torsemide. Hospice being considered. Will sign off, call with questions
Original Note:
Today's Communication / Plan
-
transition to po torsemide
hospice being considered
Impression / Plan
-
.
PCP: ALEXA Blanchard at [facility]
Primary [employer]:[facility] in [facility], Dr Donovan.
Impression:
Hypertensive emergency, improved
Hypoxemia, improved
Acute on chronic combined systolic and diastolic heart failure
Nonischemic myocardial injury, peak 0.050
Chronic kidney disease
Coronary artery disease status post CABG
Recovered Ischemic cardiomyopathy, EF 50% by echo Oct 2024 outside facility
Hx PPM
Atrial fibrillation, not anticoagulated with falls
Intracranial hemorrhages status post falls 10/2024
History of hematuria
Previously on Xarelto-stopped due to hematuria several weeks prior to 08/2024 for fall per records from [place]
Liver mass detected on right upper quadrant ultrasound 10/2024 has had follow-up with GI
Previous cardiovascular testing:
Echo 10/04/2024: LVEF 50% (had been 20-25% in past), obtained from [facility] admission note from 11/01/2024.
awaiting more records from last [place] admission
Records from [place]:
Patient was evaluated there by cardiology on 10/04/2024. Patient presented following a fall after she had gotten up in the middle of the night to use the bathroom. Unclear if she had syncope as she did not recall. Her pacemaker was interrogated
and showed underlying atrial fibrillation with no high rate episodes and normal device function. Fall/possible syncope not arrhythmogenic in origin. It was during this admission that she was found to have subarachnoid hemorrhage. She had been
previously started on Xarelto for a suspected apical LV thrombus on echo 03/2024. Xarelto had been discontinued 08/2024 for hematuria. Was advised to remain off Xarelto given subarachnoid hemorrhage. To consider aspirin 81 mg daily given extensive
vascular history if cleared by neurosurgery-unclear if she saw neurosurgery in followup.
pt follows with [facility] in [facility], Dr Donovan.
Has h/o carotid disease s/p R CEA 2019, CAD s/p CABG x 3 (CHRISTOPHER-LAD, SVG-RCA and D1 in 2017),apical LV thrombus on echo 03/2024-treated with Xarelto, discontinued 08/2024 for hematuria, paroxysmal afib, pacemaker for SSS, PAD s/p PVI.
Echo 04/20/2024: LVEF 15-20%, sev dilated LA, dilated and hypokinetic RV, mild , mod MR, mild-mod TR.
Pacemaker interrogation 10/04/2024: underlying afib, nl device fxn with no high ventricular rates
Based on above findings, no change in current care.
Continue BP mgmt with Coreg, Hydralazine- can be uptitrated if needed.
cont IV diuretics
She was previously on Spironolactone 12.5 mg daily -unclear when stopped. Given renal fxn, would hold for now.
afib appears to be permanent based on pacemaker interrogation at [place], not candidate for OAC given subarachnoid hemmorhage
Echo 11/30/2024: EF 65-70%, Stage 3 diastolic dysfxn, no thrombus noted
Plan:
-weight has plateaued if accurate. would plan to transition back po torsemide 20mg daily
-Echo 11/30/2024 with preserved EF as above
-Continue attempts at blood pressure control. Renal artery ultrasound negative for significant stenosis
-V paced rhythm on review of telemetry
-Not a candidate for anticoagulation in setting of h/o afib given falls and multiple subarachnoid hemorrhages in recent past.
-trop peaked at 0.05, suspected nonischemic myocardial injury
-per CM notes, patient being considered for hospice. ongoing conversations with family noted.
PREADMIT DATA:
HPI: 84-year-old female with history of coronary artery disease s/p CABG x 3, ischemic cardiomyopathy, chronic combined systolic/diastolic heart failure, permanent pacemaker, atrial fibrillation, chronic kidney disease stage III, PAD,
hypothyroidism, recent traumatic brain injury, cognitive impairment/dementia following intracranial hemorrhage from fall treated at [place] nonoperatively 1 month ago. She presented to [facility] from [facility] 11/29/2024 due to
concerns of progressive shortness of breath, hypoxia, lower extremity edema. Blood pressure elevated, as high as 206/104 and pt hypoxic on exam. Troponin mildly elevated, BNP greater than 27,000. Cardiology consulted for management of
hypertensive emergency, heart failure, history of pacemaker.
-Obtained some records from admission to [facility] from 11/01/2024: Echo 10/04/2024: LVEF 50% (had been 20-25% in past). Per records pt had previous fall and was at [facility] ICU with multiple traumatic brain bleeds. She then presented to
[place] 10/04/2024 with syncope and fall and found to have sustained intra parenchymal and subarachnoid hemorrhages in the bilateral frontal lobe and subarachnoid hemorrhage in the bilateral temporal lobe. Started on Keppra. Seen by neurosurgery.
Hemorrhage stable on repeat CT. Had cardiac workup that was unremarkable including pacemaker interrogation. Patient has history of being on Xarelto but it was stopped a few weeks prior to her fall due to hematuria. While in [place] found to
have liver mass and had subsequent follow-up with GI. Echo on admission to [place] on 10/04/2024 showed EF of 50%, improved from previous when EF was 20 to 25%. Heart failure regimen included torsemide 20 mg daily, beta-joseline, hydralazine, and
potassium. Has noted history of paroxysmal A-fib that was rate controlled with carvedilol. Not on oral anticoagulation due to risk of fall. There was consideration for starting aspirin if approved by neurosurgery.
Progress Note - [employer]
Subjective
Date of Service: December 04, 2024
resting comfortably
Objective
Labs:
12/04/24 08:37
12/04/24 08:37
Labs
Hgb 12.1 g/dL (12.0-16.0) D 12/04/24 08:37
Hct 38.4 % (37.0-47.0) 12/04/24 08:37
Plt Count 160 10^3/uL (130-400) D 12/04/24 08:37
PT 15.3 Sec (11.4-14.6) H 11/30/24 01:25
INR 1.16 11/30/24 01:25
APTT 28.0 Sec (23.4-35.0) 11/30/24 01:25
Sodium 138 mmol/L (135-145) 12/04/24 08:37
Potassium 3.7 mmol/L (3.5-5.1) 12/04/24 08:37
BUN 39 mg/dl (7-17) H 12/04/24 08:37
Creatinine 1.7 mg/dL (0.6-1.0) H 12/04/24 08:37
Glucose 92 mg/dl (70-99) 12/04/24 08:37
Vital Signs and I&O:
Vital Signs
Temp Pulse Resp BP Pulse Ox
97.9 F 82 20 159/84 97
12/04/24 07:55 12/04/24 09:01 12/04/24 07:55 12/04/24 09:01 12/04/24 08:50
Vital Signs
Temp Pulse Resp BP Pulse Ox
97.9 F 82 20 159/84 97
12/04/24 07:55 12/04/24 09:01 12/04/24 07:55 12/04/24 09:01 12/04/24 08:50
Intake & Output
12/02/24 12/03/24 12/04/24 12/05/24
07:59 07:59 07:59 07:59
Intake Total 515 / 515 420 / 420 600 / 600
Balance 515 / 515 420 / 420 600 / 600
Physical Exam
Physical Exam
GEN: No distress, resting comfortably
HEENT: supple, anicteric, mmm, eomi
LUNGS: nonlabored respirations, no wheezes
CV: Irreg, S1/S2, no murmur
ABD: soft, BS+, NT/ND
EXT: No cyanosis, clubbing, edema
NEURO: Gross non-focal
SKIN: Warm, pink, dry. No rash. Bandages to B/L ankles.
[2024-12-04 11:55] VITALS: BP 91/50
[2024-12-04 15:30] VITALS: BP 146/88
--- NOTE | 2024-12-04 16:35 | W.PN.NEPH.PH ---
Today's Communication / Plan
-
observe with po diuresis
Assessment/Plan
-
84F CAD ischemic Cardiomyopathy CHF ppm Hypothyroidism PAD CKD3 recent traumatic brain injury Cognitive Impairment/Dementia following Intracranial Hemorrhage from fall treated at [place] non-operatively a month ago presents from [facility]
living d/t concerns progressive SOB hypoxia requiring 4L lower ext swelling roughly 1 day duration. Presenting blood pressure>190/>100. Patient admitted to the ICU for blood pressure support
Renal consult for acute on chronic kidney disease with a creatinine of 1.8 at baseline 1.5-1.6
Impression:
Acute on chronic kidney disease stage IIIb with a baseline creatinine of 1.5-1.6 with admitting creatinine 1.8
CHF with pulmonary edema
Hypertensive urgency
Dementia/cognitive impairment status post intracranial hemorrhage
Plan:
stable renal function cr at 1.7
diuresis changed to po Torsemide per cards
neg for HERBERT on renal duplex
BP labile -monitor and holding parameters with meds
d/c plan , noted hospice considered
-
-
Date of Service: December 04, 2024
CC / HPI / ROS
-
Chief Complaint:
Shortness of breath
History of Present Illness:
ALYSON/Cr stablea t 1.7,
diuresing with IV lasix for decompensated DHF, wt no change
BP labile
Review of Systems:
No chest pain
Comfortable without shortness of breath, poor historian
Labs
-
Labs:
WBC 2.9 10^3/uL (4.8-10.8) L 12/04/24 08:37
RBC 4.97 10^6/uL (4.20-5.40) 12/04/24 08:37
Hgb 12.1 g/dL (12.0-16.0) D 12/04/24 08:37
Hct 38.4 % (37.0-47.0) 12/04/24 08:37
Plt Count 160 10^3/uL (130-400) D 12/04/24 08:37
Sodium 138 mmol/L (135-145) 12/04/24 08:37
Potassium 3.7 mmol/L (3.5-5.1) 12/04/24 08:37
Chloride 99 mmol/L (98-107) 12/04/24 08:37
Carbon Dioxide 32 mmol/L (22-30) H 12/04/24 08:37
BUN 39 mg/dl (7-17) H 12/04/24 08:37
Creatinine 1.7 mg/dL (0.6-1.0) H 12/04/24 08:37
eGFR 29.76 12/04/24 08:37
Glucose 92 mg/dl (70-99) 12/04/24 08:37
Calcium 9.5 mg/dl (8.4-10.2) 12/04/24 08:37
Phosphorus 3.1 mg/dl (2.5-4.5) 11/30/24 04:02
Sxy-V-Ygqmoerdbgs Pept > 50660 pg/ml 11/29/24 14:19
Albumin 3.9 g/dl (3.5-5.0) 11/29/24 14:19
Physical Exam
-
Vital Signs:
Vital Signs
Temp Pulse Resp BP Pulse Ox
97.3 F 80 18 91/50 97
12/04/24 11:55 12/04/24 11:55 12/04/24 11:55 12/04/24 11:55 12/04/24 11:55
Cardiovascular:: Regular rate and rhythm
Respiratory:: Bilateral: CTA (decreased)
Lung Excursion:: Normal
Abdomen:: Nontender and Soft
Extremity Edema:: None: Bilateral:
Kimble Catheter: No
--- NOTE | 2024-12-04 17:55 | W.PN.HOSP.TC ---
Today's Communication/Plan
-
Discharge patient to [facility] when they can accept her back. ? Friday
Assessment / Plan
Assessment / Plan
84-year-old female with coronary disease presented from [facility] assisted living with shortness of breath and lower extremity edema. Patient was also confused. Her pressure was elevated in the ER.
Awake and alert but confused
Cardiovascular system S1-S2 appreciated, systolic murmur at apex
Chest CTA
Abdomen soft and nontender
Bilateral lower extremity edema better
Chest x-ray reviewed by me-by bilateral pulmonary edema and effusion
Echo 11/30/2024-moderate concentric LVH, normal regional wall motion, EF 65 to 70%, stage III diastolic dysfunction. No thrombus. Mild MR, severely dilated LA, mild TR, pulmonary artery pressure 48 mmHg, moderately dilated RA, normal RV size and
systolic function
Renal artery duplex 12/03/2024- No sonographic evidence of significant renal arterial stenosis on either side.
# Acute heart failure-acute on chronic HFrEF
proBNP more than 27,000
Echo 04/20/2024-EF 15 to 20%, now improved as above
Continue Lasix 40 mg IV twice daily-Changed to PO
Daily weights intake output charting
Continue Coreg
Need to consider starting SGLT2 inhibitors this admission
Unclear why she is not on spironolactone-possibly secondary to renal function
RYANN inhibitor/Arni/ARB-hold now secondary to diuresis. Once creatinine stabilizes after adequate diuresis consider adding.
# URI symptoms with productive cough-added doxycycline. total 5 days
# Acute hypoxic respiratory insufficiency secondary to above
# Hypokalemia-replaced IV and p.o.
# Hypertensive emergency with pulmonary edema
Did not require Cardene drip per discussion with nursing
Increase p.o. hydralazine to 50 every 8 hours. Continue as needed IV hydralazine, continue Coreg
Blood pressure better with hydralazine
Renal duplex without any abnormality
# History of coronary artery disease-history of stents-CABG [address] Donovan with [facility], [facility] [place]
# Paroxysmal atrial fibrillation-not on anticoagulation as outpatient. Was started on Xarelto and discontinued August 2024. Now on Coreg
# History of pacemaker placement for sick sinus syndrome
# Elevated troponin-likely nonischemic myocardial injury
# History of LV thrombus on echo March 2024 Xarelto was started and was discontinued
# CKD stage III-unclear if has ALYSON
# Hyperlipidemia-continue statin
# Hyperglycemia-Hemoglobin A1c 5.8
# Hypothyroidism-continue Synthroid
# Mild thrombocytopenia-follow
# History of intracranial hemorrhage in 2021 and was transferred to [facility]
# History of right CEA 2019
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
# Cognitive impairment/Dementia
# Ambulatory ymuladyxeez-uqkkejfcwe-fonig now
# DVT prophylaxis-subcutaneous heparin
# DNR
Discussed with nursing
Spoke to son Dorian. He visited mom and is pleased with how she is doing. He has spoken to Daylin and everything squared away for her to return
Anticipated Discharge: 24 - 48 hours
Subjective/Interval History
-
Date of Service: December 04, 2024
Objective Data
-
Labs:
Laboratory Results
12/04/24
08:37
WBC 2.9 L
Hgb 12.1 D
Hct 38.4
Plt Count 160 D
Sodium 138
Potassium 3.7
Chloride 99
Carbon Dioxide 32 H
BUN 39 H
Creatinine 1.7 H
Glucose 92
Calcium 9.5
Vital Signs:
Vital Signs
Temp Pulse Resp BP Pulse Ox
97.6 F 79 16 146/88 97
12/04/24 15:30 12/04/24 16:58 12/04/24 15:30 12/04/24 16:58 12/04/24 15:30
I&O
12/03/24 12/04/24 12/05/24
06:59 06:59 06:59
Intake Total 420 / 420 600 / 600
Balance 420 / 420 600 / 600
[2024-12-04 19:40] VITALS: BP 140/88
[2024-12-04] MEDS: PEPCID 20 MG PO (20:13)
[2024-12-04] MEDS: LIPITOR 40 MG PO (20:14)
[2024-12-04 23:55] VITALS: BP 152/84
[2024-12-05] VITALS (7 sets, daily range): BP systolic 118–162; BP diastolic 63–88; BMI 21.0
[2024-12-05] MEDS: HEPARIN 5000 UNITS SC ×3 (00:15→17:21)
[2024-12-05] MEDS: APRESOLINE 50 MG PO ×2 (00:15→09:38)
[2024-12-05] MEDS: SYNTHROID 50 MCG PO (05:28)
[2024-12-05 08:17] LABS: % Basophils 1.1 % (0-2); % Eosinophils 1.4 % (0-6); % Immature Granulocytes 0.4 % (0-0.5); % Lymphocytes 33.8 % (20.5-51.1); % Monocytes 12.6 % (1.7-9.3); % Neutrophils 50.7 % (42.2-75.2); Absolute Lymphocytes 0.9 10^3/uL (1.2-3.4); Absolute Monocytes 0.4 10^3/uL (0.1-0.6); Absolute Neutrophils 1.4 10^3/uL (1.4-6.5); Hematocrit 35.8 % (37.0-47.0); Hemoglobin 11.9 g/dL (12.0-16.0); Mean Corp Hgb Conc. 33.2 g/dL (33.0-37.0); Mean Corpuscular Hgb 26.2 pg (27.0-31.0); Mean Corpuscular Volume 78.7 fL (81.0-99.0); Mean Platelet Volume 9.7 fL (7.4-10.4); Nucleated Red Blood Cells % 0 %; Platelet Count 174 10^3/uL (130-400); Red Blood Cell Count 4.55 10^6/uL (4.20-5.40); Red Cell Dist. Width 21.2 % (11.5-14.5); White Blood Cell Count 2.8 10^3/uL (4.8-10.8)
[2024-12-05 08:41] LABS: Blood Urea Nitrogen 41 mg/dl (7-17); Calcium 9.7 mg/dl (8.4-10.2); Carbon Dioxide 31 mmol/L (22-30); Chloride 98 mmol/L (98-107); Estimated Creatinine Clearance 16 ml/min; Glucose 97 mg/dl (70-99); Potassium 3.5 mmol/L (3.5-5.1); eGFR 29.76
[2024-12-05 08:49] LABS: Sodium 137 mmol/L (135-145)
[2024-12-05] MEDS: COREG 12.5 MG PO ×2 (09:38→20:22)
[2024-12-05] MEDS: VIBRAMYCIN 100 MG PO ×2 (09:39→20:22)
[2024-12-05] MEDS: DEMADEX 20 MG PO (09:39)
[2024-12-05] MEDS: FLUSH (NSS) 1 FLUSH IV (09:40)
[2024-12-05] MEDS: DESENEX/MITRAZOL/ZEASORB 1 APPLIC TOPICAL ×2 (09:42→20:24)
--- NOTE | 2024-12-05 15:37 | W.PN.NEPH.PH ---
Today's Communication / Plan
-
observe
Assessment/Plan
-
84F CAD ischemic Cardiomyopathy CHF ppm Hypothyroidism PAD CKD3 recent traumatic brain injury Cognitive Impairment/Dementia following Intracranial Hemorrhage from fall treated at [place] non-operatively a month ago presents from [facility]
living d/t concerns progressive SOB hypoxia requiring 4L lower ext swelling roughly 1 day duration. Presenting blood pressure>190/>100. Patient admitted to the ICU for blood pressure support
Renal consult for acute on chronic kidney disease with a creatinine of 1.8 at baseline 1.5-1.6
Impression:
Acute on chronic kidney disease stage IIIb with a baseline creatinine of 1.5-1.6 with admitting creatinine 1.8
CHF with pulmonary edema
Hypertensive urgency
Dementia/cognitive impairment status post intracranial hemorrhage
Plan:
stable renal function cr at 1.7
diuresis on po Torsemide per cards
neg for HERBERT on renal duplex
BP labile -monitor and holding parameters with meds
d/c plan , noted hospice considered
will follow perpherally
-
-
Date of Service: December 05, 2024
CC / HPI / ROS
-
Chief Complaint:
Shortness of breath
History of Present Illness:
ALYSON/Cr stablea t 1.7,
diuresing with Torsemide for decompensated DHF, wt no change
BP labile
Review of Systems:
No chest pain
Comfortable without shortness of breath, poor historian
Labs
-
Labs:
WBC 2.8 10^3/uL (4.8-10.8) L 12/05/24 06:47
RBC 4.55 10^6/uL (4.20-5.40) 12/05/24 06:47
Hgb 11.9 g/dL (12.0-16.0) L 12/05/24 06:47
Hct 35.8 % (37.0-47.0) L 12/05/24 06:47
Plt Count 174 10^3/uL (130-400) 12/05/24 06:47
Sodium 137 mmol/L (135-145) 12/05/24 06:47
Potassium 3.5 mmol/L (3.5-5.1) 12/05/24 06:47
Chloride 98 mmol/L (98-107) 12/05/24 06:47
Carbon Dioxide 31 mmol/L (22-30) H 12/05/24 06:47
BUN 41 mg/dl (7-17) H 12/05/24 06:47
Creatinine 1.7 mg/dL (0.6-1.0) H 12/05/24 06:47
eGFR 29.76 12/05/24 06:47
Glucose 97 mg/dl (70-99) 12/05/24 06:47
Calcium 9.7 mg/dl (8.4-10.2) 12/05/24 06:47
Phosphorus 3.1 mg/dl (2.5-4.5) 11/30/24 04:02
Ydp-S-Agkkgvlsswr Pept > 05353 pg/ml 11/29/24 14:19
Albumin 3.9 g/dl (3.5-5.0) 11/29/24 14:19
Physical Exam
-
Vital Signs:
Vital Signs
Temp Pulse Resp BP Pulse Ox
97.7 F 80 20 118/73 95
12/05/24 11:30 12/05/24 11:30 12/05/24 11:30 12/05/24 11:30 12/05/24 11:30
Cardiovascular:: Regular rate and rhythm
Respiratory:: Bilateral: CTA
Lung Excursion:: Normal
Abdomen:: Nontender and Soft
Extremity Edema:: None: Bilateral:
Kimble Catheter: No
--- NOTE | 2024-12-05 16:24 | W.PN.HOSP.TC ---
Today's Communication/Plan
-
Stable for discharge
Assessment / Plan
Assessment / Plan
84-year-old female with coronary disease presented from [facility] living with shortness of breath and lower extremity edema. Patient was also confused. Her pressure was elevated in the ER.
Awake and alert but confused
Cardiovascular system S1-S2 appreciated, systolic murmur at apex
Chest CTA
Abdomen soft and nontender
Bilateral lower extremity edema better
Chest x-ray reviewed by me-by bilateral pulmonary edema and effusion
Echo 11/30/2024-moderate concentric LVH, normal regional wall motion, EF 65 to 70%, stage III diastolic dysfunction. No thrombus. Mild MR, severely dilated LA, mild TR, pulmonary artery pressure 48 mmHg, moderately dilated RA, normal RV size and
systolic function
Renal artery duplex 12/03/2024- No sonographic evidence of significant renal arterial stenosis on either side.
# Acute heart failure-acute on chronic HFrEF
proBNP more than 27,000
Echo 04/20/2024-EF 15 to 20%, now improved as above
Continue Lasix 40 mg IV twice daily-Changed to PO
Daily weights intake output charting
Continue Coreg
Need to consider starting SGLT2 inhibitors this admission
Unclear why she is not on spironolactone-possibly secondary to renal function
RYANN inhibitor/Arni/ARB-hold now secondary to diuresis.
# URI symptoms with productive cough-added doxycycline. total 5 days
# Acute hypoxic respiratory insufficiency secondary to above
# Hypokalemia-replaced IV and p.o.
# Hypertensive emergency with pulmonary edema
Did not require Cardene drip per discussion with nursing
Increase p.o. hydralazine to 50 every 8 hours. Continue as needed IV hydralazine, continue Coreg
Blood pressure better with hydralazine
Renal duplex without any abnormality
# History of coronary artery disease-history of stents-CABG [address]
[facility] [address] [facility]
# Paroxysmal atrial fibrillation-not on anticoagulation as outpatient. Was started on Xarelto and discontinued August 2024. Now on Coreg
# History of pacemaker placement for sick sinus syndrome
# Elevated troponin-likely nonischemic myocardial injury
# History of LV thrombus on echo March 2024 Xarelto was started and was discontinued
# CKD stage III-unclear if has ALYSON
# Hyperlipidemia-continue statin
# Hyperglycemia-Hemoglobin A1c 5.8
# Hypothyroidism-continue Synthroid
# Mild thrombocytopenia-follow
# History of intracranial hemorrhage in 2021 and was transferred to [facility]
# History of right CEA 2019
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
# Cognitive impairment/Dementia
# Ambulatory vshojetwmlx-wrdputowlr-thloz now
# DVT prophylaxis-subcutaneous heparin
# DNR
Discussed with nursing
Spoke to son Dorian. He visited mom and is pleased with how she is doing. He has spoken to Daylin and everything squared away for her to return
Anticipated Discharge: Within 24 hours
Subjective/Interval History
-
Date of Service: December 05, 2024
Objective Data
-
Labs:
Laboratory Results
12/05/24
06:47
WBC 2.8 L
Hgb 11.9 L
Hct 35.8 L
Plt Count 174
Sodium 137
Potassium 3.5
Chloride 98
Carbon Dioxide 31 H
BUN 41 H
Creatinine 1.7 H
Glucose 97
Calcium 9.7
Vital Signs:
Vital Signs
Temp Pulse Resp BP Pulse Ox
97.7 F 80 20 118/73 95
12/05/24 11:30 12/05/24 11:30 12/05/24 11:30 12/05/24 11:30 12/05/24 11:30
I&O
01/04/25 01/05/25 01/06/25
06:59 06:59 06:59
Intake Total 600 / 600 480 / 480
Balance 600 / 600 480 / 480
[2024-12-05] MEDS: APRESOLINE PO (17:20)
[2024-12-05] MEDS: LIPITOR 40 MG PO (20:23)
[2024-12-06] MEDS: APRESOLINE PO (00:15)
[2024-12-06] MEDS: HEPARIN 5000 UNITS SC ×3 (00:23→15:40)
[2024-12-06 03:37] VITALS: BP 141/91
[2024-12-06 06:00] VITALS: BMI 21.3
[2024-12-06] MEDS: SYNTHROID PO (06:21)
[2024-12-06 06:59] VITALS: BP 188/108
[2024-12-06 08:31] VITALS: BMI 21.3
[2024-12-06 09:16] LABS: Aldosterone, Serum 26.5 ng/dL; Renin Activity Results 0.1 ng/mL/hr
[2024-12-06] MEDS: DEMADEX 20 MG PO (09:18)
[2024-12-06] MEDS: APRESOLINE 50 MG PO ×2 (09:18→15:41)
[2024-12-06] MEDS: COREG 12.5 MG PO (09:18)
[2024-12-06] MEDS: SYNTHROID 50 MCG PO (09:22)
[2024-12-06] MEDS: DESENEX/MITRAZOL/ZEASORB 1 APPLIC TOPICAL (09:24)
--- NOTE | 2024-12-06 10:44 | CM ---
CM spoke w/ Mervat, director from [facility] d/c plan p# [phone]. Per Mervat, family agreeable for hospice services upon pt's return.
CM got a call from [facility], confirming referral and agreement w/ family for hospice to sign on upon pt's return to facility. Adriana asking for d/c tomorrow morning where hospice can begin.
Requested clinicals faxed to [facility]- [phone]
Spoke w/ pt's son and HEATHERAlexisDorian who confirmed plan is for pt to return to facility w/ hospice. Son aware pt may need WC van transport as pt does not qualify for ambulance.
Spoke again w/ Mervat asking if pt can return today and await hospice to begin services tomorrow as pt has been medically stable for d/c. Mervat agreeable for pt to return today and will work w/ hospice agency to coordinate start of services.
[place]
Report: [phone]

[facility]

Plan: Return to [place]
[2024-12-06 11:50] VITALS: BP 127/77
--- NOTE | 2024-12-06 14:16 | W.PN.HOSP.TC ---
Today's Communication/Plan
-
Discharge
Assessment / Plan
Assessment / Plan
84-year-old female with coronary disease presented from [facility] living with shortness of breath and lower extremity edema. Patient was also confused. Her pressure was elevated in the ER.
Awake and alert but confused
Cardiovascular system S1-S2 appreciated, systolic murmur at apex
Chest CTA
Abdomen soft and nontender
Bilateral lower extremity edema better
Chest x-ray reviewed by me-by bilateral pulmonary edema and effusion
Echo 11/30/2024-moderate concentric LVH, normal regional wall motion, EF 65 to 70%, stage III diastolic dysfunction. No thrombus. Mild MR, severely dilated LA, mild TR, pulmonary artery pressure 48 mmHg, moderately dilated RA, normal RV size and
systolic function
Renal artery duplex 12/03/2024- No sonographic evidence of significant renal arterial stenosis on either side.
# Acute heart failure-acute on chronic HFrEF
proBNP more than 27,000
Echo 04/20/2024-EF 15 to 20%, now improved as above
Lasix 40 mg IV twice daily-Changed to PO
Daily weights intake output charting
Continue Coreg
Need to consider starting SGLT2 inhibitors this admission
Unclear why she is not on spironolactone-possibly secondary to renal function
RYANN inhibitor/Arni/ARB-hold due to elevated creat
# URI symptoms with productive cough-added doxycycline. total 5 days
# Acute hypoxic respiratory insufficiency secondary to above
# Hypokalemia-replaced IV and p.o.
# Hypertensive emergency with pulmonary edema
Did not require Cardene drip per discussion with nursing
Increase p.o. hydralazine to 50 every 8 hours. continue Coreg
Blood pressure better with hydralazine
Renal duplex without any abnormality
# History of coronary artery disease-history of stents-CABG [address] Donovan with [facility], [facility]
# Paroxysmal atrial fibrillation-not on anticoagulation as outpatient. Was started on Xarelto and discontinued August 2024. Now on Coreg
# History of pacemaker placement for sick sinus syndrome
# Elevated troponin-likely nonischemic myocardial injury
# History of LV thrombus on echo March 2024 Xarelto was started and was discontinued
# CKD stage III-unclear if has ALYSON
# Hyperlipidemia-continue statin
# Hyperglycemia-Hemoglobin A1c 5.8
# Hypothyroidism-continue Synthroid
# Mild thrombocytopenia-resolved
# History of intracranial hemorrhage in 2021 and was transferred to [facility]
# History of right CEA 2019
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
# Cognitive impairment/Dementia
# Ambulatory fhmjdkqwcrz-yoczlewral-fbbvq now
# DVT prophylaxis-subcutaneous heparin
# DNR
Discussed with nursing
12/05/24- Spoke to cristina Alarcon. He visited mom and is pleased with how she is doing. He has spoken to Daylin and everything squared away for her to return
[facility] wants the patient on hospice. Initially wanted to take the patient back tomorrow however since she has been medically stable we will discharge her today to be placed on hospice staff tomorrow
Discussed with case management
More than 30 minutes spent in discharge including
Final examination of the patient
Summarizing hospital stay
Instructions for continuing care to all relevant caregivers
Preparation of discharge records, prescriptions, and referral forms
Total time spent (in minutes): 37 min
Anticipated Discharge: Today
Subjective/Interval History
-
Date of Service: December 06, 2024
Objective Data
-
Vital Signs:
Vital Signs
Temp Pulse Resp BP Pulse Ox
97.4 F 87 18 127/77 96
12/06/24 06:59 12/06/24 11:50 12/06/24 11:50 12/06/24 11:50 12/06/24 11:50
I&O
12/05/24 12/06/24 12/07/24
06:59 06:59 06:59
Intake Total 480 / 480 720 / 720
Balance 480 / 480 720 / 720
--- NOTE | 2024-12-06 14:28 | W.DS.TRANS ---
Addendum entered and electronically signed by Monserrat Baron MD 12/06/24 16:01:
Dictation- [id number]
Original Note:
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
-
Discharge Instructions:
Sleep Apnea Risk Low
Discharge Diagnosis/Procedures CHF
Bronchitis
Hypokalemia
Hypertension emergency
Hypertension
Coronary artery disease
Atrial fibrillation
Pacemaker
CKD
Hyperlipidemia
Hypothyroidism
Thrombocytopenia
History of right CEA
History of CVA
Dementia
Ambulatory dysfunction
Diet 2 Gram Sodium,Restrict fluids to 48 oz
Activity As tolerated,With assistance
Driving Restrictions No driving
Other Services PT,OT
Specialty Instructions Weigh Daily
Instructions: *PCP/Other Email Specialist Heart Failure Instructions
Stand-Alone Forms:
Changes to Home Medications: Yes
Discharge Medications:
DC Medications w/original date entered in [employer]
acetaminophen 325 mg tablet (Tylenol) 650 mg PO Q6HPRN PRN mild pain 11/29/24
bisacodyl 10 mg rectal suppository (Dulcolax (bisacodyl)) 10 mg NE DAILYPRN PRN constipation 11/29/24
lidocaine 4 % topical patch 1 patch topical DAILYPRN PRN back pain 11/29/24
methocarbamol 500 mg tablet 500 mg PO Q8HPRN PRN muscle spams 11/29/24
sorbitol 70 % solution 30 ml PO DAILYPRN PRN constipation 11/29/24
atorvastatin 40 mg tablet (Lipitor) 40 mg PO HS High cholesterol #0 tabs 12/06/24
carvedilol 12.5 mg tablet (Coreg) 12.5 mg PO BID Blood pressure #0 tabs 12/06/24
famotidine 20 mg tablet 20 mg PO Q48H Gastrointestinal issue #30 tabs 12/06/24
hydralazine 50 mg tablet 50 mg PO Q8 Blood pressure #90 tabs 12/06/24
levothyroxine 25 mcg tablet (Synthroid) 50 mcg (2 x 25 mcg) PO DAILY@0600 Thyroid #0 tabs 12/06/24
polyethylene glycol 3350 17 gram oral powder packet 17 g PO DAILYPRN PRN constipation #0 ea 12/06/24
torsemide 20 mg tablet 20 mg PO DAILY Fluid retention/Swelling #0 tabs 12/06/24
Home Medication Changes
new
famotidine 20 mg tablet 20 mg PO Q48H Gastrointestinal issue #30 tabs 12/06/24
Dose increase HYdralazine
Pending Results: No
[2024-12-06 15:30] VITALS: BP 136/71
--- NOTE | 2024-12-06 16:16 | PTCARENOTE ---
Received patient this am AAOx1. Pt has dementia and is TEJON. Pt was feed and tolerated diet. Appetite fair. Pt turned an repositioned Q 2. Made patient comfortable. Pt for discharge back to [place] today. Cont to assess patient status.
== END 2024-12-06 16:49 | disposition home health service (06) | DRG 291 ==
LOC: 4 EAST ACU 19:40
PROVIDERS: Physician Assistant; ADMITTING PHYSICIAN Internal Medicine; ATTENDING PHYSICIAN Hospitalist; EMERGENCY PHYSICIAN Student in an Organized Health Care Education/Training Program; FAMILY PHYSICIAN Internal Medicine; OTHER PHYSICIAN Internal Medicine Critical Care Medicine; OTHER PHYSICIAN Internal Medicine Nephrology; OTHER PHYSICIAN Nuclear Medicine Nuclear Cardiology
DX: I13.0 Hypertensive heart and chronic kidney disease with heart failure and stage 1 through stage 4 chronic kidney disease, or unspecified chronic kidney disease (principal); I50.23 Acute on chronic systolic (congestive) heart failure; I16.1 Hypertensive emergency; N17.9 Acute kidney failure, unspecified; E87.6 Hypokalemia; I48.0 Paroxysmal atrial fibrillation; N18.32 Chronic kidney disease, stage 3b; E78.5 Hyperlipidemia, unspecified; E03.9 Hypothyroidism, unspecified; D69.6 Thrombocytopenia, unspecified; Z66 Do not resuscitate; Z51.5 Encounter for palliative care
CPT/HCPCS: 70450; 71046; 80048; 80053; 82088; 83036; 83735; 83880; 84100; 84244; 84484; 85025; 85610; 85730; 87070; 87502; 92526; 92610; 93005; 93306; 93975; 96374; 97161; 97166; 97530; 99285

== ENCOUNTER 2025-01-14 06:45 | Emergency (ER) | payer OTHER, SELFPAY ==
[2025-01-14 06:58] VITALS: BP 173/104
--- NOTE | 2025-01-14 07:32 | ED.GENMED ---
History of Present Illness
General
Chief Complaint: Fall
Time Seen by Provider: 01/14/25 07:09
History of Present Illness
History of Present Illness:
84-year-old female with history of dementia presents to the Emergency Department from SNF for evaluation after an unwitnessed fall. Unknown duration of down time. She cannot provide any history and is minimally verbal. Arrives with laceration to the
R lip
Past History
Past History
ED Past Medical History: HTN
Review of Systems
Review of Systems
Allergies reviewed?: Yes
All Other Systems: ROS reviewed and negative except as documented in HPI and ROS
Phy Exam
Physical Exam
Physical Exam:
GEN: Well appearing, NAD, WDWN
Eyes: PERRLA, EOMs intact, no scleral icterus
HENT: NCAT, oral mucosa moist, dried blood with swelling to the right upper and lower lips
Lungs: CTAB, no wheezes, rales, rhonchi, normal chest wall excursion
Cardiac: RRR, no M/R/G, no peripheral edema. Radial pulses 2+ bilat
Abdomen: S, NT, ND, NABS, no masses or hepatosplenomegaly
Neuro: Sleeping, arouses easily, minimally verbal, nods or shakes head to answer questions
MSK: Mild swelling to the right medial knee with tenderness to palpation, no shortening or external rotation of the lower extremities, no pelvic tenderness. Scoliotic, no obvious midline tenderness to the cervical, thoracic, or lumbar spine
Skin: No rashes, petechiae. Normal color, no pallor or jaundice.
Psych: Calm, cooperative, proper hygiene
Course
Orders/Labs/Results
Orders:
Orders
01/14/25 07:31
CT Cervical Spine W/o Iv Contr Urgent
Comment:
Reason For Exam: unwitnessed fall
CT Head W/o Iv Contrast Urgent
Comment:
Reason For Exam: unwitnessed fall
CR Chest Single View Routine
Comment:
Reason For Exam: unwitnessed fall
CR Knee- Right 4 Or More View* Urgent
Comment:
Reason For Exam: fall
01/14/25 07:49
CPK [Creatine Phosphokinase] Urgent
Complete Blood Count/With Diff Urgent
Comprehensive Metabolic Panel Urgent
01/14/25 08:32
0.9% Sodium Chloride 1000 ml [Nss] 1,000 ml IV BOLUS
Abnormal Lab Results
01/14/25
07:49
WBC 3.1 L 10^3/uL
(4.8-10.8)
MCV 74.6 L fL
(81.0-99.0)
MCH 23.6 L pg
(27.0-31.0)
MCHC 31.6 L g/dL
(33.0-37.0)
RDW 20.2 H %
(11.5-14.5)
Monocytes % 14.0 H %
(1.7-9.3)
Chloride 88 L mmol/L
(98-107)
Carbon Dioxide 40 H mmol/L
(22-30)
BUN 45 H mg/dl
(7-17)
Creatinine 2.0 H mg/dL
(0.6-1.0)
01/14/25 07:49
01/14/25 07:49
Vital Signs
Initial and Last Documented VS:
Initial Vital Signs
BP Pulse Ox
173/104 97
01/14/25 06:58 01/14/25 06:58
Last Documented Vital Signs
Temp Pulse Resp BP Pulse Ox
97.2 F 80 30 161/87 95
01/14/25 07:12 01/14/25 12:45 01/14/25 12:45 01/14/25 12:00 01/14/25 12:45
Procedures
Laceration Closure
Right Upper Lip:
Status of Wound: clean
Size of Wound in cm: 3
Description of Wound Edges: ragged
Preparation: cleaned with saline
Anesthesia: 1% Lidocaine with epi and Digital-Regional (R infra-orbital)
Wound exploration: explored to base- no FB
Type of Closure: layered closure
Skin Closure Material: 5-0 chromic gut
Number of sutures: 4
MDM/Problems Addressed
MDM/Problems Addressed:
84-year-old female presents after a fall. CT of the head and cervical spine as well as labs are unremarkable. Right upper lip laceration was repaired with internal subcuticular sutures, discharged back to nursing facility in stable condition
*Critical Care Note
Total Time (30-74mins, 75-104mins- exclusive of procedures): Not Applicable
ED Attending Note
-
Portions of this chart may have been created with voice recognition software.� Occasional wrong word or��sound alike� substitutions may have occurred due to the inherent limitations of voice recognition software.
Discharge Plan
Departure
Patient Disposition: Home (Routine Discharge)
Date of Disposition: 01/14/25
Time of Disposition: 09:56
Patient with high blood pressure during this ER visit?: No
Discharge Problem:
Unwitnessed fall, Laceration of lip
Instructions: Laceration Repair With Stitches (DC)
Prescriptions:
No Action
methocarbamol 500 mg Tablet
500 mg PO Q8HPRN PRN (Reason: muscle spams)
acetaminophen [Tylenol] 325 mg Tablet
650 mg PO Q6HPRN PRN (Reason: mild pain)
lidocaine 4 % Adhesive Patch,Medicated
1 patch TOPICAL DAILYPRN PRN (Reason: back pain)
bisacodyl [Dulcolax (bisacodyl)] 10 mg Suppository
10 mg ND DAILYPRN PRN (Reason: constipation)
sorbitol 70 % Solution
30 ml PO DAILYPRN PRN (Reason: constipation)
atorvastatin [Lipitor] 40 mg Tablet
40 mg PO HS Qty: 0 0RF
carvedilol [Coreg] 12.5 mg Tablet
12.5 mg PO BID Qty: 0 0RF
torsemide 20 mg Tablet
20 mg PO DAILY Qty: 0 0RF
levothyroxine [Synthroid] 25 mcg Tablet
50 mcg PO DAILY@0600 Qty: 0 0RF
potassium chloride 10 mEq Tablet Extended Release
10 meq PO DAILY
hydralazine 50 mg tablet
25 mg PO BID
Referrals:
Myra Esposito DO [Family Provider] -
Activity Restrictions/Additional Instructions:
Upper lip laceration was repaired with internal sutures, these will dissolve and do not need to be removed
Interventions
Interventions:
*Risk Screen - Suicide Last Done: 01/14/25 09:19
*General Assessment Last Done: 01/14/25 09:19
*Neglect/Abuse Screening Last Done: 01/14/25 09:19
ED- Fall Risk Assessment Last Done: 01/14/25 09:19
*ED COVID-19 Vaccine History Last Done: 01/14/25 09:19
ED-Musculoskeletal Assessment Last Done: 01/14/25 09:19
ED- Neurological Assessment Last Done: 01/14/25 09:19
ED-Skin Assessment Last Done: 01/14/25 09:19
Discharge Date and Time
Print Language: THAI
[2025-01-14 08:15] LABS: ALT (SGPT) 11 U/L (0-35); AST (SGOT) 22 U/L (14-36); Albumin 3.8 g/dl (3.5-5.0); Alkaline Phosphatase 77 U/L (38-126); Blood Urea Nitrogen 45 mg/dl (7-17); Calcium 9.4 mg/dl (8.4-10.2); Carbon Dioxide 40 mmol/L (22-30); Chloride 88 mmol/L (98-107); Creatine Phosphokinase 37 U/L (30-135); Glucose 86 mg/dl (70-99); Potassium 3.8 mmol/L (3.5-5.1); Sodium 136 mmol/L (135-145); Total Bilirubin 0.6 mg/dl (0.2-1.3); Total Protein 7.1 g/dl (6.3-8.2); eGFR 24.48
[2025-01-14 08:38] LABS: Hematocrit 39.9 % (37.0-47.0); Hemoglobin 12.6 g/dL (12.0-16.0); Mean Corp Hgb Conc. 31.6 g/dL (33.0-37.0); Mean Corpuscular Hgb 23.6 pg (27.0-31.0); Mean Corpuscular Volume 74.6 fL (81.0-99.0); Platelet Count 174 10^3/uL (130-400); Red Blood Cell Count 5.35 10^6/uL (4.20-5.40); Red Cell Dist. Width 20.2 % (11.5-14.5); White Blood Cell Count 3.1 10^3/uL (4.8-10.8)
[2025-01-14] MEDS: NSS 1000 IV (08:56)
[2025-01-14 08:58] VITALS: BP 172/94
[2025-01-14 09:00] VITALS: BP 170/98
[2025-01-14 09:29] LABS: % Basophils 0.3 % (0-2); % Immature Granulocytes 0.3 % (0-0.5); % Lymphocytes 36.6 % (20.5-51.1); % Neutrophils 47.8 % (42.2-75.2); Absolute Lymphocytes 1.2 10^3/uL (1.2-3.4); Absolute Monocytes 0.4 10^3/uL (0.1-0.6); Absolute Neutrophils 1.5 10^3/uL (1.4-6.5); Nucleated Red Blood Cells % 0 %
[2025-01-14 10:00] VITALS: BP 175/94
[2025-01-14 11:00] VITALS: BP 184/97
[2025-01-14 12:00] VITALS: BP 161/87
== END 2025-01-14 15:22 | disposition home or self-care (01) ==
LOC: EMR 06:45
PROVIDERS: Physician Assistant; EMERGENCY PHYSICIAN Emergency Medicine; FAMILY PHYSICIAN Family Medicine
DX: S01.511A Laceration without foreign body of lip, initial encounter (principal); R22.41 Localized swelling, mass and lump, right lower limb; W19.XXXA Unspecified fall, initial encounter; F03.90 Unspecified dementia, unspecified severity, without behavioral disturbance, psychotic disturbance, mood disturbance, and anxiety; I10 Essential (primary) hypertension
CPT/HCPCS: 12052; 96360; 99284; 70450; 71045; 72125; 73564; 80053; 82550; 85025